=== PATIENT | male | born 1940 | race Caucasian/White ===

== ENCOUNTER 2019-01-26 17:24 | Inpatient (IN) | payer MEDICARE ==
[2019-01-26 18:13] LABS: ABS Basophils 0 10^3/ul (0-0.2); ABS Eosinophils 0.3 10^3/ul (0-0.6); ABS Lymphocytes 1.6 10^3/ul (1.0-4.8); ABS Monocytes 0.8 10^3/ul (0-0.8); ABS Neutrophils 4.7 10^3/ul (1.5-7.7); ABS Nucleated RBC 0 10^3/ul; Eosinophil % 3.5 %; Hematocrit 34 % (36-46); Hemoglobin 11.4 g/dL (14.0-18.0); Lymphocyte % 21.7 %; Mean Corpuscular HGB Conc 34 g/dL (31-36); Mean Corpuscular Hemoglobin 33 pg (27-31); Mean Corpuscular Volume 96 fL (80-94); Mean Platelet Volume 9.8 fL (7.4-10.4); Nucleated Red Blood Cells % 0.1; Platelet Count 121 10^3/uL (150-450); Red Cell Distribution Width 14 % (10.5-15); White Blood Count 7.4 10^3/uL (3.5-10.8)
[2019-01-26 18:21] LABS: INR 0.98 (0.77-1.02)
[2019-01-26 18:29] LABS: Albumin 3.8 g/dL (3.2-5.2); Albumin/Globulin Ratio 1.5 (1-3); C Reactive Protein 23.66 mg/L (<8.01); Calcium 9.1 mg/dL (8.6-10.3); EGFR African American 45.4 (>60); EGFR Non-African American 37.5 (>60); Globulin 2.6 g/dL (2-4); Magnesium 2.1 mg/dL (1.9-2.7); Total Bilirubin 0.5 mg/dL (0.2-1.0); Total Protein 6.4 g/dL (6.4-8.9)
[2019-01-26 18:30] LABS: Potassium 5.7 mmol/L (3.5-5.0)
[2019-01-26 19:19] LABS: TSH (Thyroid Stimulating Horm) 2.8 mcIU/mL (0.34-5.60)
[2019-01-26] MEDS ORDERED: Hydrochlorothiazide TAB* 25 MG PO ONE (19:32)
[2019-01-26 19:39] LABS: Urine Appearance Clear; Urine Bacteria Absent (Absent); Urine Bilirubin Negative (Negative); Urine Blood Negative (Negative); Urine Color Yellow; Urine Glucose 1+(50 mg/dL) (Negative); Urine Ketones Trace (Negative); Urine Nitrite Negative (Negative); Urine Protein 1+(30 mg/dL) (Negative); Urine Red Blood Cell Absent (Absent); Urine Specific Gravity 1.011 (1.010-1.030); Urine Urobilinogen Negative (Negative); Urine White Blood Cell Absent (Absent)
--- NOTE | 2019-01-26 20:39 | ED ---
Complex/Multi-Sys Presentation - HPI Summary HPI Summary: Per family patient complains of one episode of exertional shortness of breath, increased sleeping and fatigue, slower cognition over the past few days. Patient complains of chronic intermittent sensation of head pressure 1 year, with negative MRI in April 2018. also states patient's blood pressure was elevated up to 184/55 today, states baseline BP usually in the 130s. Also complains of worsening chronic shuffling gait. Denies fever, cough, sore throat , CP, N/V/D, abdominal pain, change in urine, change in BM. Medical history is DM 2, triple bypass with stents, most recently 6 years ago, chronic diarrhea. Cobol Programmer is Dr. Hearn at [facility]. - History Of Current Complaint Chief Complaint: EDAltMentalStatus Time Seen by Provider: 01/26/19 17:31 Hx Obtained From: Patient, Family/Corporate Director Onset/Duration: Gradual Onset Timing: Intermittent, Lasting: Severity Currently: Moderate Severity Initially: Moderate Associated Signs And Symptoms: Positive: SOB, Diarrhea - Allergies/Home Medications Allergies/Adverse Reactions: Allergies Allergy/AdvReac Type Severity Reaction Status Date / Time Sulfa (Sulfonamide Allergy Rash Verified 01/26/19 21:21 Antibiotics) Home Medications: Home Medications Atorvastatin* [Lipitor*] 40 mg PO 1700 01/26/19 [History Confirmed 01/26/19] PMH/Surg Hx/FS Hx/Imm Hx Endocrine/Hematology History: Reports: Hx Diabetes - TYPE II-ORAL MEDS AND INSULIN Cardiovascular History: Reports: Hx Coronary Artery Disease - 2 STENTS AND TRIPLE BYPASS, Hx Hypertension - ON MEDICATION FOR, Other Cardiovascular Problems/Disorders - OPEN HEART Denies: Hx Pacemaker/ICD Respiratory History: Reports: Hx Sleep Apnea - NO MACHINE- SLEEPS ON WEDGE PILLOW Denies: Hx Asthma Musculoskeletal History: Reports: Hx Arthritis, Hx Rheumatoid Arthritis Sensory History: Reports: Hx Cataracts - BILATERAL, Hx Contacts or Glasses - GLASSES-READING Denies: Hx Hearing Aid Opthamlomology History: Reports: Hx Cataracts - BILATERAL, Hx Contacts or Glasses - GLASSES-READING Neurological History: Reports: Other Neuro Impairments/Disorders - VERTIGO WHEN LAYING ON LEFT SIDE Psychiatric History: Denies: Hx Panic Disorder - Surgical History Surgery Procedure, Year, and Place: OPEN HEART-1993. 2008 CARDIAC CATH CARDIAC STENTS ( PT HAS CARDS,BOTH TAXUS,700G/cm,OK PER DR POLLOCK AT 1.5 ONLY). HERNIA REPAIR. 11/26/13 AND 12/06/13 2 CERVICAL SURGERIES WITH FUSION-LUBBOCK. CATARACT REPAIR. PINOIDAL CYST REMOVED FROM SACRUM 2015 Hx Anesthesia Reactions: No - Immunization History Immunizations Up to Date: Yes Infectious Disease History: No Infectious Disease History: Denies: Traveled Outside the [place] in Last 30 Days - Social History Alcohol Use: Rare Substance Use Type: Reports: None Smoking Status (MU): Former Smoker Type: Cigars Amount Used/How Often: S-CIGAR ONCE IN A WHILE Review of Systems Positive: Fatigue Eyes: Negative ENT: Negative Cardiovascular: Negative Positive: Shortness Of Breath Gastrointestinal: Negative Genitourinary: Negative Musculoskeletal: Negative Neurological: Negative Psychological: Normal All Other Systems Reviewed And Are Negative: Yes Physical Exam - Summary Physical Exam Summary: Neuro exam normal. Abdomen soft nontender. Bradycardia. Lung sounds clear to auscultation bilaterally. Triage Information Reviewed: Yes Vital Signs On Initial Exam: Initial Vitals Temp Pulse Resp BP Pulse Ox 98.5 F 60 17 156/56 94 01/26/19 17:27 01/26/19 17:27 01/26/19 17:27 01/26/19 17:27 01/26/19 17:27 Vital Signs Reviewed: Yes Appearance: Positive: Well-Appearing Skin: Positive: Warm Head/Face: Positive: Normal Head/Face Inspection Eyes: Positive: Normal Neck: Positive: Supple Respiratory/Lung Sounds: Positive: Clear to Auscultation Cardiovascular: Positive: Bradycardia Abdomen Description: Positive: Nontender Musculoskeletal: Positive: Normal Neurological: Positive: Normal Psychiatric: Positive: Normal AVPU Assessment: Alert - Zackery Coma Scale Best Eye Response: 4 - Spontaneous Best Motor Response: 6 - Obeys Commands Best Verbal Response: 5 - Oriented Coma Scale Total: 15 Diagnostics - Vital Signs Vital Signs Temp Pulse Resp BP Pulse Ox 01/26/19 19:31 39 19 155/76 94 01/26/19 19:01 40 23 174/78 96 01/26/19 19:00 40 21 95 01/26/19 18:43 48 213/63 01/26/19 18:42 28 213/63 01/26/19 18:40 44 25 171/68 94 01/26/19 18:38 41 17 167/88 94 01/26/19 18:30 41 26 175/67 92 01/26/19 18:25 41 21 179/68 94 01/26/19 18:00 25 01/26/19 17:31 41 22 156/56 96 01/26/19 17:30 42 26 95 01/26/19 17:27 98.5 F 60 17 156/56 94 - Laboratory Lab Results: Lab Results 01/26/19 01/26/19 01/26/19 Range/Units 17:59 18:06 18:06 WBC 7.4 (3.5-10.8) 10^3/uL RBC 3.50 L (4.18-5.48) 10^6 /uL Hgb 11.4 L (14.0-18.0) g/dL Hct 34 L (36-46) % MCV 96 H (80-94) fL MCH 33 H (27-31) pg MCHC 34 (31-36) g/dL RDW 14 (10.5-15) % Plt Count 121 L (150-450) 10^3/uL MPV 9.8 (7.4-10.4) fL Neut % (Auto) 64.1 % Lymph % (Auto) 21.7 % [place] % (Auto) 10.3 % Eos % (Auto) 3.5 % Baso % (Auto) 0.4 % Absolute Neuts (auto) 4.7 (1.5-7.7) 10^3/ul Absolute Lymphs (auto) 1.6 (1.0-4.8) 10^3/ul Absolute Monos (auto) 0.8 (0-0.8) 10^3/ul Absolute Eos (auto) 0.3 (0-0.6) 10^3/ul Absolute Basos (auto) 0 (0-0.2) 10^3/ul Absolute Nucleated RBC 0 10^3/ul Nucleated RBC % 0.1 INR (Anticoag Therapy) (0.77-1.02) Sodium 138 (135-145) mmol/L Potassium 5.7 H (3.5-5.0) mmol/L Chloride 106 (101-111) mmol/L Carbon Dioxide 23 (22-32) mmol/L Anion Gap 9 (2-11) mmol/L BUN 51 H (6-24) mg/dL Creatinine 1.76 H (0.67-1.17) mg/dL Est GFR ( Amer) 45.4 (>60) Est GFR (Non-Af Amer) 37.5 (>60) BUN/Creatinine Ratio 29.0 H (8-20) Glucose 169 H (70-100) mg/dL Lactic Acid (0.5-2.0) mmol/L Calcium 9.1 (8.6-10.3) mg/dL Magnesium 2.1 (1.9-2.7) mg/dL Total Bilirubin 0.50 (0.2-1.0) mg/dL AST 20 (13-39) U/L ALT 33 (7-52) U/L Alkaline Phosphatase 97 (34-104) U/L Troponin I (<0.04) ng/mL C-Reactive Protein 23.66 H (<8.01) mg/L B-Natriuretic Peptide 638 H (<=100) pg/mL Total Protein 6.4 (6.4-8.9) g/dL Albumin 3.8 (3.2-5.2) g/dL Globulin 2.6 (2-4) g/dL Albumin/Globulin Ratio 1.5 (1-3) TSH 2.80 (0.34-5.60) mcIU/mL Urine Color Urine Appearance Urine pH (5-9) Ur Specific [place] (1.010-1.030) Urine Protein (Negative) Urine Ketones (Negative) Urine Blood (Negative) Urine Nitrate (Negative) Urine Bilirubin (Negative) Urine Urobilinogen (Negative) Ur Leukocyte Esterase (Negative) Urine WBC (Auto) (Absent) Urine RBC (Auto) (Absent) Urine Bacteria (Absent) Urine Glucose (Negative) Urine Ascorbic Acid (Negative) 01/26/19 01/26/19 01/26/19 Range/Units 18:06 18:06 18:06 WBC (3.5-10.8) 10^3/uL RBC (4.18-5.48) 10^6 /uL Hgb (14.0-18.0) g/dL Hct (36-46) % MCV (80-94) fL MCH (27-31) pg MCHC (31-36) g/dL RDW (10.5-15) % Plt Count (150-450) 10^3/uL MPV (7.4-10.4) fL Neut % (Auto) % Lymph % (Auto) % [place] % (Auto) % Eos % (Auto) % Baso % (Auto) % Absolute Neuts (auto) (1.5-7.7) 10^3/ul Absolute Lymphs (auto) (1.0-4.8) 10^3/ul Absolute Monos (auto) (0-0.8) 10^3/ul Absolute Eos (auto) (0-0.6) 10^3/ul Absolute Basos (auto) (0-0.2) 10^3/ul Absolute Nucleated RBC 10^3/ul Nucleated RBC % INR (Anticoag Therapy) 0.98 (0.77-1.02) Sodium (135-145) mmol/L Potassium (3.5-5.0) mmol/L Chloride (101-111) mmol/L Carbon Dioxide (22-32) mmol/L Anion Gap (2-11) mmol/L BUN (6-24) mg/dL Creatinine (0.67-1.17) mg/dL Est GFR ( Amer) (>60) Est GFR (Non-Af Amer) (>60) BUN/Creatinine Ratio (8-20) Glucose (70-100) mg/dL Lactic Acid 3.1 H* (0.5-2.0) mmol/L Calcium (8.6-10.3) mg/dL Magnesium (1.9-2.7) mg/dL Total Bilirubin (0.2-1.0) mg/dL AST (13-39) U/L ALT (7-52) U/L Alkaline Phosphatase (34-104) U/L Troponin I 0.01 (<0.04) ng/mL C-Reactive Protein (<8.01) mg/L B-Natriuretic Peptide (<=100) pg/mL Total Protein (6.4-8.9) g/dL Albumin (3.2-5.2) g/dL Globulin (2-4) g/dL Albumin/Globulin Ratio (1-3) TSH (0.34-5.60) mcIU/mL Urine Color Urine Appearance Urine pH (5-9) Ur Specific [place] (1.010-1.030) Urine Protein (Negative) Urine Ketones (Negative) Urine Blood (Negative) Urine Nitrate (Negative) Urine Bilirubin (Negative) Urine Urobilinogen (Negative) Ur Leukocyte Esterase (Negative) Urine WBC (Auto) (Absent) Urine RBC (Auto) (Absent) Urine Bacteria (Absent) Urine Glucose (Negative) Urine Ascorbic Acid (Negative) 01/26/19 Range/Units 19:25 WBC (3.5-10.8) 10^3/uL RBC (4.18-5.48) 10^6 /uL Hgb (14.0-18.0) g/dL Hct (36-46) % MCV (80-94) fL MCH (27-31) pg MCHC (31-36) g/dL RDW (10.5-15) % Plt Count (150-450) 10^3/uL MPV (7.4-10.4) fL Neut % (Auto) % Lymph % (Auto) % [place] % (Auto) % Eos % (Auto) % Baso % (Auto) % Absolute Neuts (auto) (1.5-7.7) 10^3/ul Absolute Lymphs (auto) (1.0-4.8) 10^3/ul Absolute Monos (auto) (0-0.8) 10^3/ul Absolute Eos (auto) (0-0.6) 10^3/ul Absolute Basos (auto) (0-0.2) 10^3/ul Absolute Nucleated RBC 10^3/ul Nucleated RBC % INR (Anticoag Therapy) (0.77-1.02) Sodium (135-145) mmol/L Potassium (3.5-5.0) mmol/L Chloride (101-111) mmol/L Carbon Dioxide (22-32) mmol/L Anion Gap (2-11) mmol/L BUN (6-24) mg/dL Creatinine (0.67-1.17) mg/dL Est GFR ( Amer) (>60) Est GFR (Non-Af Amer) (>60) BUN/Creatinine Ratio (8-20) Glucose (70-100) mg/dL Lactic Acid (0.5-2.0) mmol/L Calcium (8.6-10.3) mg/dL Magnesium (1.9-2.7) mg/dL Total Bilirubin (0.2-1.0) mg/dL AST (13-39) U/L ALT (7-52) U/L Alkaline Phosphatase (34-104) U/L Troponin I (<0.04) ng/mL C-Reactive Protein (<8.01) mg/L B-Natriuretic Peptide (<=100) pg/mL Total Protein (6.4-8.9) g/dL Albumin (3.2-5.2) g/dL Globulin (2-4) g/dL Albumin/Globulin Ratio (1-3) TSH (0.34-5.60) mcIU/mL Urine Color Yellow Urine Appearance Clear Urine pH 5.0 (5-9) Ur Specific [place] 1.011 (1.010-1.030) Urine Protein 1+(30 mg/dl) A (Negative) Urine Ketones Trace A (Negative) Urine Blood Negative (Negative) Urine Nitrate Negative (Negative) Urine Bilirubin Negative (Negative) Urine Urobilinogen Negative (Negative) Ur Leukocyte Esterase Negative (Negative) Urine WBC (Auto) Absent (Absent) Urine RBC (Auto) Absent (Absent) Urine Bacteria Absent (Absent) Urine Glucose 1+(50 mg/dl) A (Negative) Urine Ascorbic Acid * A (Negative) Result Diagrams: 01/26/19 18:06 01/26/19 18:06 Lab Statement: Any lab studies that have been ordered have been reviewed, and results considered in the medical decision making process. Complex Multi-Symp Course/Dx Course Of Treatment: Per family patient complains of one episode of exertional shortness of breath, increased sleeping and fatigue, slower cognition over the past few days. Patient complains of chronic intermittent sensation of head pressure 1 year, with negative MRI in April 2018. also states patient's blood pressure was elevated up to 184/55 today, states baseline BP usually in the 130s. Also complains of worsening chronic shuffling gait. Denies fever, cough, sore throat, CP, N/V/D, abdominal pain, change in urine, change in BM. Medical history is DM 2, triple bypass with stents, most recently 6 years ago, chronic diarrhea. Cobol Programmer is Dr. Hearn at [facility]. Physical exam:Neuro exam normal. Abdomen soft nontender. Bradycardia. Lung sounds clear to auscultation bilaterally. Patient bradycardic with a heart rate in the 40s. Elevated blood pressure ranging from 160-200 SBP. Hgb 11.4. Potassium 5.7, elevated from baseline. Creatinine 1.76 elevated from baseline. Lactic 3.1. CRP 23. BNP 638, with no prior BNP measurements on file. EKG 21 AV block. Chest x-ray negative for acute process. Discussed patient with on-call for patient's emergency detail driver at [facility] in [place] stated patient did not have history of AV block, and recommended hydrochlorothiazide of elevated blood pressure, discontinuing metoprolol and observation to see if conduction disturbance resolved. Discussed patient with on-call [facility] emergency detail driver Dr. Wood who recommended admission to hospitalist, hydrochlorothiazide 25 mg by mouth, discontinuing metoprolol and observation. Dr. Lopez will consult tomorrow morning. Patient and family understand the plan. Admitted to hospitalist Dr. Campos for new onset AV block - Diagnoses Provider Diagnoses: Fatigue, Exertional shortness of breath, AV block Discharge - Sign-Out/Discharge Documenting (check all that apply): Patient Departure Patient Received Moderate/Deep Sedation with Procedure: No - Discharge Plan Condition: Stable Disposition: ADMITTED TO [facility] - Billing Disposition and Condition Condition: STABLE Disposition: Admitted to [facility]
[2019-01-26] MEDS ORDERED: Furosemide IV* 10 MG/ML VIAL (40 MG) IV ONE (21:14)
[2019-01-26] MEDS ORDERED: Acetaminophen TAB* 325 MG PO PRN (21:15)
[2019-01-26] MEDS ORDERED: Morphine INJ* 2 MG/ML 1 ML SYRINGE (TWO MG - NEW SYRINGE VERSION) IV PRN (21:15)
[2019-01-26] MEDS ORDERED: Dextrose 50% Syringe 50 ML* 25 GM/50 ML SYRINGE IV PUSH PRN (21:28)
[2019-01-26] MEDS: Heparin VIAL(*) 5000 UNITS/ML VIAL (FIVE THOUSAND) SUBCUT SCH (22:34)
--- NOTE | 2019-01-26 23:52 | HP ---
CC: Dr. Gillespie; [facility], Dr. Daniel Hearn; Dr. Wood HISTORY AND PHYSICAL: DATE OF ADMISSION: 01/26/19 PRIMARY CARE PROVIDER: Dr. Gillespie. CHIEF COMPLAINT: Generalized weakness and shortness of breath. HISTORY OF PRESENT ILLNESS: Jamarcus Kilpatrick is a 78-year-old male with a history of coronary artery disease and diagnosed in 2009 Mobitz type I block, who presented to the hospital complaining of 2 weeks of feeling weak, not sleeping well, short of breath. The patient is a rather convoluted historian. He stated that that he felt better when he put his fan on when he was sleeping at night, but his stated that he put the fan on because he could not breathe at night. He stated that the problem with shortness of breath is not changed with position. He really feels that he sleeps best in a recliner. He presented to the ED. He was noted to have heart rate in the 30s with 2:[address] Wood was notified. The patient is going to be admitted to the intensive care unit for likely pacemaker in the future. PAST MEDICAL HISTORY: 1. History of hypertension. 2. Diabetes type 2. 3. Coronary artery disease, status post coronary artery bypass grafting in 1993. The patient also has history of stents. His last cardiac catheterization in 2012 showed patent graft and patent stents and moderate to severe LAD stenosis that is unchanged. Apparently, the stenosis is not amenable for intervention. 4. History of C-spine decompression, 2 surgeries for that. 5. History of hyperlipidemia. 6. History of chronic back pain. 7. History of lumbar spine surgery in 2015. MEDICATIONS AT HOME: 1. Halima 24 hours, take 1 by mouth daily p.r.n. 2. Altace 2.5 mg twice a day. 3. Amlodipine 10 mg daily. 4. Aspirin 81 mg daily. 5. Atorvastatin 40 mg daily. 6. Glucosamine 1500 mg daily. 7. Glyburide 6 mg daily. 8. Hydrochlorothiazide 12.5 mg daily. 9. Metformin 1000 mg in the morning, 1000 at noon, and 500 at night. 10. Metoprolol succinate 50 mg daily. 11. Naproxen 220 mg twice a day. 12. Insulin lispro as per sliding scale. Please note that this medication list was obtained from the patient's medication list that he received from his primary care provider on 01/03/19 and as per patient is current. The patient could not confirm those medications because he does not remember what he takes. ALLERGIES: Include SULFA. FAMILY HISTORY: Positive for mother who of an AL at the age of 60. Father of complications of stomach surgery and apparently GI bleeding. The patient's brother and sister both have diabetes. SOCIAL HISTORY: The patient denies any tobacco, alcohol, or drug use. He lives with his , who is his surrogate, her name is Jayda Kilpatrick. There is no history of tobacco, alcohol, or drug use. He is fully independent with his activities of daily living. REVIEW OF SYSTEMS: Please see history of present illness. All the remaining 12 systems were reviewed with the patient and were otherwise negative. PHYSICAL EXAMINATION GENERAL: The patient is a very pleasant 78-year-old male who is in no acute distress. The patient is alert and oriented x3, rather poor historian though. VITAL SIGNS: Blood pressure of 175/66, heart rate of 39 and regular, respiratory rate 26, oxygen saturation 95% on room air, temperature of 98.5. HEENT: Head: Atraumatic, normocephalic. Eyes: Pupils are equal, reactive to light and accommodation. Oropharynx clear. Mucosa moist. NECK: Supple. No JVD, no bruits bilaterally. RESPIRATORY: Faint crackles at bilateral bases, otherwise clear. CARDIOVASCULAR: Bradycardia, regular rhythm with 2/6 systolic ejection murmur noted on auscultation of the apex. ABDOMEN: Soft, nontender. Bowel sounds are present in all 4 quadrants. EXTREMITIES: There is +1 pitting ankle edema bilaterally. Pulses are +2 bilaterally. There is no clubbing or cyanosis. NEUROLOGIC EVALUATION: Speech is clear. Cranial nerves II through XII grossly intact. Motor strength is 5/5 bilaterally. PSYCHIATRIC EVALUATION: Rather poor historian, oriented x3 with no evidence of anxiety or depression. SKIN: On evaluation of the skin, brown discoloration of bilateral distal lower extremities likely due to venous stasis. No other abnormalities noted. DIAGNOSTIC STUDIES/LAB DATA: White blood cell count of 7.4, hemoglobin of 11.4 , hematocrit of 34, MCV of 96, and platelets of 121. Sodium of 138, potassium 4.7, chloride 106, carbon dioxide 23, BUN 51, creatinine 1.76. Liver function tests are unremarkable. Lactic acid is 3.1 at arrival, 2.2 repeated. C-reactive protein of 23. Troponin of 0.01 and 0.02. Brain natriuretic peptide was 638. TSH was 2.8. The patient's portable chest x-ray seen by myself prior to the official radiology report shows vascular congestion. The patient's EKG showed 2:1 AV block with a heart rate of 41 beats per minute and ST depressions in V3 and V4. ASSESSMENT AND PLAN: 1. The patient has 2:1 heart block. He has history of Mobitz type I block. It is possible that the patient has had natural progression of his heart block. The patient had been on his same dose of metoprolol for at least several months now. I will hold the patient's metoprolol. He is going to be admitted to the intensive care unit. So far, he had been hemodynamically stable. Dr. Wood is aware of the patient's consultation as he was notified by the ED physician. At this point, we will treat it supportively and the patient likely will need to have pacemaker placement on Monday. 2. The patient has uncontrolled hypertension. Due to his bradycardia, metoprolol needs to be held. The patient is going to be continued on Norvasc and hydrochlorothiazide. The patient also appears in acute systolic congestive heart failure and Lasix is going to be ordered x1 dose today. The patient is going to also be placed on daily weights and intake and output summaries. 3. For the patient's acute kidney injury, the patient's creatinine at baseline is 1.2 due to chronic kidney disease stage 3, although the patient is not aware of that diagnosis. I suspect his congestive heart failure is due to bradycardia. I suspect he is in renal failure due to bradycardia and systolic congestive heart failure. His creatinine should improve after Lasix administration. I suspect also his hyperkalemia will improve after Lasix administration. 4. For the patient's diabetes, the patient's oral hypoglycemics are going to be held. The patient is going to be placed on insulin sliding scale. His Humulin is also going to be held. 5. For DVT prophylaxis, the patient is going to be placed on heparin subcutaneously. 6. For the patient's coronary artery disease, the patient is not symptomatic of chest pain. His troponins have been so far negative. The patient is going to be continue on his atorvastatin and aspirin. 7. The patient's code status is full. His surrogate is his . TIME SPENT: Approximately 65 minutes was spent on the admission of this patient , more than half of that time was spent [id number] with the patient during the interview and physical exam. [id number]/[facility] #: [id number] GILMAR
[2019-01-27] MEDS ORDERED: Patiromer POWDER* 8.4 GM PAK PO ONE (03:00)
[2019-01-27] MEDS: Heparin VIAL(*) 5000 UNITS/ML VIAL (FIVE THOUSAND) SUBCUT SCH ×3 (06:23→22:30)
[2019-01-27 07:38] LABS: ABS Basophils 0 10^3/ul (0-0.2); ABS Eosinophils 0.2 10^3/ul (0-0.6); ABS Lymphocytes 0.9 10^3/ul (1.0-4.8); ABS Monocytes 0.6 10^3/ul (0-0.8); ABS Neutrophils 4.1 10^3/ul (1.5-7.7); ABS Nucleated RBC 0 10^3/ul; Eosinophil % 3.9 %; Hematocrit 32 % (36-46); Hemoglobin 11.1 g/dL (14.0-18.0); Mean Corpuscular HGB Conc 34 g/dL (31-36); Mean Corpuscular Hemoglobin 32 pg (27-31); Mean Corpuscular Volume 94 fL (80-94); Mean Platelet Volume 9.8 fL (7.4-10.4); Nucleated Red Blood Cells % 0; Platelet Count 119 10^3/uL (150-450); Red Blood Count 3.44 10^6 /uL (4.18-5.48); Red Cell Distribution Width 14 % (10.5-15); White Blood Count 5.9 10^3/uL (3.5-10.8)
[2019-01-27] MEDS: Insulin LISPRO* 1 UNITS UNIT SUBCUT SCH ×4 (08:00→22:32)
[2019-01-27 08:01] LABS: BUN/Creatinine Ratio 29.7 (8-20); EGFR African American 52.6 (>60); EGFR Non-African American 43.5 (>60); Potassium 4.5 mmol/L (3.5-5.0)
[2019-01-27] MEDS: Hydrochlorothiazide TAB* 25 MG PO SCH (09:18)
[2019-01-27] MEDS: Aspirin EC TAB* 81 MG TAB.EC PO SCH (09:18)
[2019-01-27] MEDS: amLODIPine TAB* 5 MG PO SCH (09:18)
--- NOTE | 2019-01-27 12:27 | PN ---
Subjective Date of Service: 01/27/19 Interval History: Less SOB today. No chest pain. No new c/o. Objective Active Medications: Acetaminophen (Tylenol Tab*) 650 mg PO Q4H PRN PRN Reason: FEVER/PAIN Amlodipine Besylate (Norvasc Tab*) 10 mg PO DAILY [facility] Last Admin: 01/27/19 09:18 Dose: 10 mg Aspirin (Aspirin Ec Tab*) 81 mg PO DAILY [facility] Last Admin: 01/27/19 09:18 Dose: 81 mg Atorvastatin Calcium (Lipitor*) 40 mg PO 1700 [facility] Dextrose (D50w Syringe 50 Ml*) 12.5 gm IV PUSH .FOR FS < 60 - SS PRN PRN Reason: FS < 60 Heparin Sodium (Porcine) (Heparin Vial(*)) 5,000 units SUBCUT Q8HR [facility] Last Admin: 01/27/19 06:23 Dose: 5,000 units Hydrochlorothiazide (Hydrodiuril Tab*) 12.5 mg PO DAILY [facility] Last Admin: 01/27/19 09:18 Dose: 12.5 mg Insulin Human Lispro (Humalog*) 0 units SUBCUT ACHS [facility]; Protocol Last Admin: 01/27/19 12:16 Dose: 8 units Insulin Human NPH (Insulin Nph(*)) 15 units SUBCUT BEDTIME [facility] Morphine Sulfate (Morphine Inj (Syringe))*) 1 mg IV Q4H PRN PRN Reason: PAIN - MILD Vital Signs - 8 hr 01/27/19 01/27/19 01/27/19 04:32 05:00 05:01 Temperature Pulse Rate 41 39 38 Respiratory 19 23 20 Rate Blood Pressure 149/54 156/61 (mmHg) O2 Sat by Pulse 93 94 94 Oximetry 01/27/19 01/27/19 01/27/19 05:31 06:00 06:31 Temperature Pulse Rate 40 45 43 Respiratory 22 16 26 Rate Blood Pressure 150/75 161/95 (mmHg) O2 Sat by Pulse 95 95 92 Oximetry 01/27/19 01/27/19 01/27/19 07:00 07:01 07:31 Temperature Pulse Rate 44 43 43 Respiratory 26 24 22 Rate Blood Pressure 159/90 141/117 (mmHg) O2 Sat by Pulse 94 92 93 Oximetry 01/27/19 01/27/19 01/27/19 08:00 08:02 08:31 Temperature Pulse Rate 45 45 Respiratory 20 25 21 Rate Blood Pressure 170/61 162/59 (mmHg) O2 Sat by Pulse 94 94 Oximetry 01/27/19 01/27/19 01/27/19 09:00 09:02 10:00 Temperature Pulse Rate 47 48 45 Respiratory 24 19 22 Rate Blood Pressure 158/49 (mmHg) O2 Sat by Pulse 93 92 98 Oximetry 01/27/19 01/27/19 01/27/19 11:00 11:22 12:00 Temperature Pulse Rate 44 44 45 Respiratory 22 22 22 Rate Blood Pressure 157/45 (mmHg) O2 Sat by Pulse 95 95 96 Oximetry 01/27/19 12:04 Temperature 98.4 F Pulse Rate 47 Respiratory 16 Rate Blood Pressure 157/45 (mmHg) O2 Sat by Pulse 96 Oximetry Oxygen Devices in Use Now: None Appearance: Alert, in a chair. In good spirits. Looks comfortable. Eyes: No Scleral Icterus Respiratory: Symmetrical Chest Expansion and Respiratory Effort, Clear to Auscultation, Clear to Percussion Cardiovascular: RRR, No Edema, - - 2-3/6 systolic murmur across precordium Extremities: No Edema, No Clubbing, Cyanosis, - Skin: No Rash or Ulcers, No Nodules or Sclerosis, - Neurological: Alert and Oriented x 3, NL Sensation Result Diagrams: 01/27/19 07:22 01/27/19 07:22 Additional Lab and Data: Lab Results 01/26/19 01/26/19 01/26/19 Range/Units 17:59 18:06 18:06 WBC 7.4 (3.5-10.8) 10^3/uL RBC 3.50 L (4.18-5.48) 10^6 /uL Hgb 11.4 L (14.0-18.0) g/dL Hct 34 L (36-46) % MCV 96 H (80-94) fL MCH 33 H (27-31) pg MCHC 34 (31-36) g/dL RDW 14 (10.5-15) % Plt Count 121 L (150-450) 10^3/uL MPV 9.8 (7.4-10.4) fL Neut % (Auto) 64.1 % Lymph % (Auto) 21.7 % Boyd % (Auto) 10.3 % Eos % (Auto) 3.5 % Baso % (Auto) 0.4 % Absolute Neuts (auto) 4.7 (1.5-7.7) 10^3/ul Absolute Lymphs (auto) 1.6 (1.0-4.8) 10^3/ul Absolute Monos (auto) 0.8 (0-0.8) 10^3/ul Absolute Eos (auto) 0.3 (0-0.6) 10^3/ul Absolute Basos (auto) 0 (0-0.2) 10^3/ul Absolute Nucleated RBC 0 10^3/ul Nucleated RBC % 0.1 INR (Anticoag Therapy) (0.77-1.02) Sodium 138 (135-145) mmol/L Potassium 5.7 H (3.5-5.0) mmol/L Chloride 106 (101-111) mmol/L Carbon Dioxide 23 (22-32) mmol/L Anion Gap 9 (2-11) mmol/L BUN 51 H (6-24) mg/dL Creatinine 1.76 H (0.67-1.17) mg/dL Est GFR ( Amer) 45.4 (>60) Est GFR (Non-Af Amer) 37.5 (>60) BUN/Creatinine Ratio 29.0 H (8-20) Glucose 169 H (70-100) mg/dL Lactic Acid (0.5-2.0) mmol/L Calcium 9.1 (8.6-10.3) mg/dL Magnesium 2.1 (1.9-2.7) mg/dL Total Bilirubin 0.50 (0.2-1.0) mg/dL AST 20 (13-39) U/L ALT 33 (7-52) U/L Alkaline Phosphatase 97 (34-104) U/L Troponin I (<0.04) ng/mL C-Reactive Protein 23.66 H (<8.01) mg/L B-Natriuretic Peptide 638 H (<=100) pg/mL Total Protein 6.4 (6.4-8.9) g/dL Albumin 3.8 (3.2-5.2) g/dL Globulin 2.6 (2-4) g/dL Albumin/Globulin Ratio 1.5 (1-3) TSH 2.80 (0.34-5.60) mcIU/mL Urine Color Urine Appearance Urine pH (5-9) Ur Specific [place] (1.010-1.030) Urine Protein (Negative) Urine Ketones (Negative) Urine Blood (Negative) Urine Nitrate (Negative) Urine Bilirubin (Negative) Urine Urobilinogen (Negative) Ur Leukocyte Esterase (Negative) Urine WBC (Auto) (Absent) Urine RBC (Auto) (Absent) Urine Bacteria (Absent) Urine Glucose (Negative) Urine Ascorbic Acid (Negative) 01/26/19 01/26/19 01/26/19 Range/Units 18:06 18:06 18:06 WBC (3.5-10.8) 10^3/uL RBC (4.18-5.48) 10^6 /uL Hgb (14.0-18.0) g/dL Hct (36-46) % MCV (80-94) fL MCH (27-31) pg MCHC (31-36) g/dL RDW (10.5-15) % Plt Count (150-450) 10^3/uL MPV (7.4-10.4) fL Neut % (Auto) % Lymph % (Auto) % Boyd % (Auto) % Eos % (Auto) % Baso % (Auto) % Absolute Neuts (auto) (1.5-7.7) 10^3/ul Absolute Lymphs (auto) (1.0-4.8) 10^3/ul Absolute Monos (auto) (0-0.8) 10^3/ul Absolute Eos (auto) (0-0.6) 10^3/ul Absolute Basos (auto) (0-0.2) 10^3/ul Absolute Nucleated RBC 10^3/ul Nucleated RBC % INR (Anticoag Therapy) 0.98 (0.77-1.02) Sodium (135-145) mmol/L Potassium (3.5-5.0) mmol/L Chloride (101-111) mmol/L Carbon Dioxide (22-32) mmol/L Anion Gap (2-11) mmol/L BUN (6-24) mg/dL Creatinine (0.67-1.17) mg/dL Est GFR ( Amer) (>60) Est GFR (Non-Af Amer) (>60) BUN/Creatinine Ratio (8-20) Glucose (70-100) mg/dL Lactic Acid 3.1 H* (0.5-2.0) mmol/L Calcium (8.6-10.3) mg/dL Magnesium (1.9-2.7) mg/dL Total Bilirubin (0.2-1.0) mg/dL AST (13-39) U/L ALT (7-52) U/L Alkaline Phosphatase (34-104) U/L Troponin I 0.01 (<0.04) ng/mL C-Reactive Protein (<8.01) mg/L B-Natriuretic Peptide (<=100) pg/mL Total Protein (6.4-8.9) g/dL Albumin (3.2-5.2) g/dL Globulin (2-4) g/dL Albumin/Globulin Ratio (1-3) TSH (0.34-5.60) mcIU/mL Urine Color Urine Appearance Urine pH (5-9) Ur Specific [place] (1.010-1.030) Urine Protein (Negative) Urine Ketones (Negative) Urine Blood (Negative) Urine Nitrate (Negative) Urine Bilirubin (Negative) Urine Urobilinogen (Negative) Ur Leukocyte Esterase (Negative) Urine WBC (Auto) (Absent) Urine RBC (Auto) (Absent) Urine Bacteria (Absent) Urine Glucose (Negative) Urine Ascorbic Acid (Negative) 01/26/19 Range/Units 19:25 WBC (3.5-10.8) 10^3/uL RBC (4.18-5.48) 10^6 /uL Hgb (14.0-18.0) g/dL Hct (36-46) % MCV (80-94) fL MCH (27-31) pg MCHC (31-36) g/dL RDW (10.5-15) % Plt Count (150-450) 10^3/uL MPV (7.4-10.4) fL Neut % (Auto) % Lymph % (Auto) % Boyd % (Auto) % Eos % (Auto) % Baso % (Auto) % Absolute Neuts (auto) (1.5-7.7) 10^3/ul Absolute Lymphs (auto) (1.0-4.8) 10^3/ul Absolute Monos (auto) (0-0.8) 10^3/ul Absolute Eos (auto) (0-0.6) 10^3/ul Absolute Basos (auto) (0-0.2) 10^3/ul Absolute Nucleated RBC 10^3/ul Nucleated RBC % INR (Anticoag Therapy) (0.77-1.02) Sodium (135-145) mmol/L Potassium (3.5-5.0) mmol/L Chloride (101-111) mmol/L Carbon Dioxide (22-32) mmol/L Anion Gap (2-11) mmol/L BUN (6-24) mg/dL Creatinine (0.67-1.17) mg/dL Est GFR ( Amer) (>60) Est GFR (Non-Af Amer) (>60) BUN/Creatinine Ratio (8-20) Glucose (70-100) mg/dL Lactic Acid (0.5-2.0) mmol/L Calcium (8.6-10.3) mg/dL Magnesium (1.9-2.7) mg/dL Total Bilirubin (0.2-1.0) mg/dL AST (13-39) U/L ALT (7-52) U/L Alkaline Phosphatase (34-104) U/L Troponin I (<0.04) ng/mL C-Reactive Protein (<8.01) mg/L B-Natriuretic Peptide (<=100) pg/mL Total Protein (6.4-8.9) g/dL Albumin (3.2-5.2) g/dL Globulin (2-4) g/dL Albumin/Globulin Ratio (1-3) TSH (0.34-5.60) mcIU/mL Urine Color Yellow Urine Appearance Clear Urine pH 5.0 (5-9) Ur Specific [place] 1.011 (1.010-1.030) Urine Protein 1+(30 mg/dl) A (Negative) Urine Ketones Trace A (Negative) Urine Blood Negative (Negative) Urine Nitrate Negative (Negative) Urine Bilirubin Negative (Negative) Urine Urobilinogen Negative (Negative) Ur Leukocyte Esterase Negative (Negative) Urine WBC (Auto) Absent (Absent) Urine RBC (Auto) Absent (Absent) Urine Bacteria Absent (Absent) Urine Glucose 1+(50 mg/dl) A (Negative) Urine Ascorbic Acid * A (Negative) Assess/Plan/Problems-Billing Assessment: - Patient Problems (1) Second degree heart block Current Visit: Yes Status: Acute Code(s): I44.1 - ATRIOVENTRICULAR BLOCK, SECOND DEGREE SNOMED Code(s): 356564238 Comment: Two to one conduction. GA is not prolonged, could favor type II but not certain. Tele. Discussed with Dr. Wood. Last dose metoprolol succinate in AM 4/6. (2) CAD (coronary artery disease) Current Visit: Yes Status: Acute Code(s): I25.10 - ATHSCL HEART DISEASE OF [place] CORONARY ARTERY W/O ANG PCTRS SNOMED Code(s): 59743892 Comment: CABG many years ago. Stents more recently. Had "complete checkup" with his r programmer in [place] 10/2018. (3) Diabetes Current Visit: Yes Status: Acute Code(s): E11.9 - TYPE 2 DIABETES MELLITUS WITHOUT COMPLICATIONS SNOMED Code(s): 19440136 Comment: Metformin and glyburide on hold. Take N insulin 20 U bedtime, will give 1 U hs start 01/27. SSI.
--- NOTE | 2019-01-27 14:55 | CONS ---
CC: Hospitalist Service; Dr. Wood; Dr. Hernandez; Dr. Gillespie * CARDIOLOGY CONSULT: DATE OF CONSULT: 01/27/19 HISTORY OF PRESENT ILLNESS: I was asked by hospitalist service to see this 78- year- old male patient, who does have extensive cardiac history. He followed up with Dr. Hearn at [facility] in [place], his degreaser. The patient presented with generalized weakness, fatigability, lack of energy, shortness of breath, lightheadedness, dizziness for a few weeks actually. In the emergency room, he was found to be in bradycardia, heart rate upper 30s, lower 40s and 2:1 AV block. He was hospitalized for consideration for a permanent pacemaker. He is on metoprolol 50 mg once a day. The patient gives no history of syncope. He does have extensive cardiac history that includes coronary artery disease, bypass grafting in 1993, also history of multiple stents in the past. Cath, last one 2012 showed patent graft and patent stents, [id number] LAD stenosis that was unchanged, but apparently not amenable for intervention. He does have history of systemic arterial hypertension, his blood pressure was elevated; hyperlipidemia; chronic back pain syndrome and lumbar spine surgery, 2016; history of diabetes mellitus type 2. He gives no chest pain, no nausea, no vomiting, no hematochezia, no skin rash, no abdominal pain, no syncope, no swelling in the lower extremities, no palpitations, no tachycardia is appreciated. His review of all other systems essentially is negative. PAST MEDICAL HISTORY: Extensive: Coronary artery disease, CABG, multiple stents; diabetes mellitus type 2; systemic arterial hypertension; hyperlipidemia ; chronic back pain syndrome and lumbar spine surgery. MEDICATIONS: Outpatient medications: 1. Altace 2.5 mg twice a day. 2. Amlodipine 10 mg daily. 3. Aspirin 81 mg daily. 4. Lipitor 40 mg daily. 5. Glyburide 6 mg daily. 6. Hydrochlorothiazide 12.5 mg daily. 7. Halima 24 Hour 1 if needed. 8. Metformin 1000 mg in the morning, 1000 at noon, and 500 at night. 9. Metoprolol 50 mg daily. 10. Naproxen 220 mg twice a day. 11. Insulin sliding scale. Medications as an inpatient include the followin. Tylenol 650 mg p.o. q.4 hours p.r.n. 2. Norvasc 10 mg daily. 3. Aspirin 81 mg daily. 4. Lipitor 40 mg daily. 5. Heparin 5000 units subcu q.8 hours. 6. Hydrochlorothiazide 12.5 mg daily. 7. Insulin. ALLERGIES: He is allergic to SULFA. FAMILY HISTORY: , mother, [place] at age 60. Father, no history of coronary artery disease. SOCIAL HISTORY: No history of smoking, drinking, or illicit drug use. He lives with his . REVIEW OF SYSTEMS: Review of all other systems essentially is negative. PHYSICAL EXAM: On exam, he is awake, alert, and oriented. He feels tired, fatigued. He is not in acute distress. Vitals: Blood pressure 157/45; pulse 47, sinus rhythm; respiratory rate 16; temperature 98.4. Head and Neck Exam: Normocephalic, atraumatic head. Ears, Nose, and Throat: Essentially benign. Neck: Supple. JVP is not elevated. No carotid bruits. No masses in the neck are appreciated. Chest: Clear to auscultation. No rales, no wheeze. No added sounds appreciated. Heart: Normal S1, S2. No added sounds. No gallops , no rubs, but they are bradycardic. Abdomen: Obese, soft. Positive bowel sounds. Extremities: No edema, no cyanosis, no clubbing. Skin exam is normal. Psych: Normal affect and mood. BUTTON MAKER: No focal deficits appreciated. DIAGNOSTIC STUDIES/LAB DATA: White blood cell 5.9, hemoglobin 11.1, hematocrit 32, platelets 119. Chemistry: Sodium 138, potassium 4.5, chloride 105, total CO2 25, BUN 46, creatinine 1.55. Troponin 0.02. His chest x-ray was reported to have pulmonary vascular congestion, small pleural effusion. His EKG showed the patient to be in sinus rhythm, sinus bradycardia, 2:1 AV block, borderline left atrial abnormality. IMPRESSION: The patient is a 78-year-old male patient with: 1. Symptomatic resting sinus bradycardia and 2:1 atrioventricular block. 2. The patient had history from before of [place] I second-degree atrioventricular block. 3. Extensive cardiac history, coronary artery disease, coronary artery bypass graft, cardiac cath in 2012, followed up with Cardiology at [facility] in [place]. 4. Diabetes mellitus, insulin-dependent. 5. Systemic arterial hypertension. 6. Hyperlipidemia. 7. Obesity. 8. Abnormal EKG as described. PLAN: Permanent pacemaker is indicated. It is very important to evaluate an echo to evaluate his left ventricular systolic function given his history of coronary artery disease. If his left ventricular systolic function is 35 or less, then he is a candidate for an ICD. We will evaluate this. Meanwhile, I agree with holding his metoprolol. Keep electrolytes, especially potassium more than 4, magnesium more than 2. Continue the rest of his medications as is. Keep a close eye on his blood pressure. I discussed this at length with the patient, his in the room, his 2 sons in the room. He is amenable. He is willing to proceed. We will get him scheduled tentatively for tomorrow morning. We will try to obtain all his cardiology records from [place]. TIME SPENT: More than half of at least 60 to 65 plus minutes was in the face-to - face education and counseling mode, explaining all the above, making further recommendations, and answering their questions. [id number]/[facility] #: [id number] GILMAR
[2019-01-27] MEDS: Atorvastatin* 40 MG TAB PO SCH (17:17)
[2019-01-27] MEDS ORDERED: Insulin NPH(*) 1 UNITS UNIT SUBCUT SCH (21:00)
[2019-01-28] MEDS: Heparin VIAL(*) 5000 UNITS/ML VIAL (FIVE THOUSAND) SUBCUT SCH ×3 (05:29→21:11)
[2019-01-28] MEDS: Insulin LISPRO* 1 UNITS UNIT SUBCUT SCH ×4 (08:41→21:11)
[2019-01-28] MEDS: Hydrochlorothiazide TAB* 25 MG PO SCH (08:45)
[2019-01-28] MEDS: amLODIPine TAB* 5 MG PO SCH (08:45)
[2019-01-28] MEDS: Aspirin EC TAB* 81 MG TAB.EC PO SCH (08:45)
[2019-01-28] MEDS ORDERED: Diazepam TAB(*) 5 MG PO ONE (15:07)
[2019-01-28] MEDS ORDERED: ceFAZolin 1 GM/10 ML flush(*) SYRINGE for pocket flush (cardiology) FLUSH ONE (15:07)
[2019-01-28] MEDS ORDERED: ceFAZolin 2 GM PREMIX in ORs 2 GM/50 ML BAG IVPB ONE (15:07)
[2019-01-28] MEDS ORDERED: NS 0.9% 1000 ML** 1,000 ML IV SCH (15:15)
[2019-01-28] MEDS ORDERED: Lidocaine 1% INJ* 10 MG/ML 30 ML SDV ONE (15:20)
[2019-01-28] MEDS ORDERED: fentaNYL* 50 MCG/ML 2 ML VIAL (100 MCG VIAL) ONE (15:34)
[2019-01-28] MEDS ORDERED: Midazolam* 1 MG/ML 5 ML VIAL (5 MG) ONE (15:34)
--- NOTE | 2019-01-28 15:34 | ECHO ---
Patient: LUZ HARDING [facility] Rec#: [id number] : 1940 Date: 01/28/2019 Age: 79y Height: 178 cm / 70.1 in Weight: 92.3 kg / 203.4 lbs Sex: M BSA: 2.1 Room#: 434 Admit Date#: 01/26/2019 Type: Inpatient Referring: Cinthya Campos MD Reading: Tamir Hatch MD Moving Worker: Iva Alonso RN RDCS CC: Jae Hernandez MD Transthoracic Echocardiogram Indication: CHF, Bradycardia, Heart block BP: 153/48 HR: 42 Rhythm: Bradycardia Findings History: CAD, CABG, coronary stenting, HTN, HLD, DM Technical Comments: The study quality is fair. The study is technically limited due to patient body habitus. Left Ventricle: The left ventricular chamber size is normal. Mild concentric left ventricular hypertrophy is observed. Global left ventricular wall motion and contractility are within normal limits. There is normal left ventricular systolic function. The estimated ejection fraction is greater than 65%. Left Atrium: The left atrium is moderately dilated. Right Ventricle: The right ventricular chamber size and systolic function are within normal limits. Right Atrium: The right atrium is mild to moderately dilated. There is evidence of an atrial septal aneurysm. Aortic Valve: The aortic valve is trileaflet. The aortic valve leaflets are moderately thickened. Systolic excursion of the aortic valve cusps is reduced. There is no evidence of aortic regurgitation. There is mild aortic stenosis. The mean gradient of the aortic valve is 13 mmHg. The peak instantaneous gradient of the aortic valve is 24 mmHg. The aortic valve area, by peak velocities, is calculated at 1.8 cm2. The aortic valve area, by VTI's, is calculated at 1.9 cm2. The highest aortic valve velocity was obtained with the standard probe from the A3C view. Mitral Valve: Moderate mitral annular calcification present. The mitral valve leaflets are mildly thickened. There is mild mitral regurgitation. There is borderline mitral stenosis. Tricuspid Valve: The tricuspid valve leaflets are normal. There is mild tricuspid regurgitation. Unable to estimate the right ventricular systolic pressure. There is no tricuspid stenosis. Pulmonic Valve: The pulmonic valve appears normal. There is moderate pulmonic regurgitation. There is no pulmonic stenosis. Pericardium: There is no significant pericardial effusion. A pericardial fat pad is visualized. Aorta: There is moderate dilatation of the ascending aorta. The aortic arch is not well visualized. There is no dilation of the aortic root. Pulmonary Artery: The main pulmonary artery appears normal. Venous: The inferior vena cava appears normal in size. There is less than 50% respiratory change in the inferior vena cava dimension. Summary: There are no significant changes when compared to the previous study done on 09/26/18 Conclusions Mild concentric left ventricular hypertrophy is observed. Global left ventricular wall motion and contractility are within normal limits. There is normal left ventricular systolic function. The estimated ejection fraction is greater than 65%. The aortic valve leaflets are moderately thickened. There is mild aortic stenosis. The mean gradient of the aortic valve is 13 mmHg. The mitral valve leaflets are mildly thickened. There is mild mitral regurgitation. There is mild tricuspid regurgitation. Unable to estimate the right ventricular systolic pressure. There is no significant pericardial effusion. There are no significant changes when compared to the previous study done on 09/26/18 There is moderate dilatation of the ascending aorta. Measurements Name Value Normal Range RVIDd (AP) 2D 2.8 cm (0.9 - 2.6) RVDdMajor (2D) 4.2 cm (2.2 - 4.4) RAd ISD 4CH 5.6 cm (3.4 - 4.9) RA (A4C)W 4.3 cm (2.9 - 4.6) IVSd (2D) 1.2 cm (0.6 - 1) LVPWd (2D) 1.2 cm (0.6 - 1) LVIDd (2D) 5.2 cm (3.6 - 5.4) LVIDs (2D) 3.6 cm - LV FS (2D) 31 % (25 - 45) Aortic Annulus 2.3 cm (1.4 - 2.6) Ao root diameter (2D) 3.4 cm (2.1 - 3.5) Ascending Ao 4.4 cm (2.1 - 3.4) LA dimension (AP) 2D 4.7 cm (2.3 - 3.8) LAd ISD 4CH 6.5 cm (2.9 - 5.3) LA ISD 4CH W 5 cm (2.5 - 4.5) Name Value Normal Range LA ESV BP (A/L) index 51 ml/m2 - Name Value Normal Range MV E-wave Vmax 1.2 m/sec - MV deceleration time 289 msec - MV A-wave Vmax 1.7 m/sec - MV E:A ratio 0.7 ratio - LV septal e' Vmax 0.14 m/sec - LV E:e' septal ratio 8.6 ratio - Name Value Normal Range AV Vmax 2.4 m/sec - AV VTI 60.2 cm - AV peak gradient 24 mmHg - AV mean gradient 13 mmHg - LVOT diameter 2 cm - LVOT Vmax 1.4 m/sec - LVOT VTI 37.1 cm - LVOT peak gradient 7 mmHg - LVOT mean gradient 4 mmHg - DOI (VTI) 0.62 ratio - DOI (Vmax) 0.58 ratio - LISA (continuity Vmax) 1.8 cm2 - LISA (continuity VTI) 1.9 cm2 - Name Value Normal Range MV Vmax 2.2 m/sec - MV VTI 74 cm - MV peak gradient 18 mmHg - MV mean gradient 3 mmHg - MV PHT 89 msec - MVA (PHT) 2.5 cm2 - MVA (continuity VTI) 1.6 cm2 - Name Value Normal Range IVC diameter 1.9 cm - Name Value Normal Range PV Vmax 1.3 m/sec -
[2019-01-28] MEDS ORDERED: ceFAZolin VIAL 1 GM in NS *SYRINGE * * 10 ML ONE (16:00)
[2019-01-28] MEDS ORDERED: oxyCODONE/Acetamin 5/325 MG* TAB PO PRN (17:08)
[2019-01-28] MEDS: Atorvastatin* 40 MG TAB PO SCH (18:07)
--- NOTE | 2019-01-28 18:54 | PN ---
Subjective Date of Service: 01/28/19 Interval History: No c/o. Objective Active Medications: Acetaminophen (Tylenol Tab*) 650 mg PO Q4H PRN PRN Reason: FEVER/PAIN Amlodipine Besylate (Norvasc Tab*) 10 mg PO DAILY [facility] Last Admin: 01/28/19 08:45 Dose: 10 mg Aspirin (Aspirin Ec Tab*) 81 mg PO DAILY [facility] Last Admin: 01/28/19 08:45 Dose: 81 mg Atorvastatin Calcium (Lipitor*) 40 mg PO 1700 [facility] Last Admin: 01/28/19 18:07 Dose: 40 mg Dextrose (D50w Syringe 50 Ml*) 12.5 gm IV PUSH .FOR FS < 60 - SS PRN PRN Reason: FS < 60 Heparin Sodium (Porcine) (Heparin Vial(*)) 5,000 units SUBCUT Q8HR [facility] Last Admin: 01/28/19 13:14 Dose: Not Given Hydrochlorothiazide (Hydrodiuril Tab*) 12.5 mg PO DAILY [facility] Last Admin: 01/28/19 08:45 Dose: 12.5 mg Sodium Chloride (Ns 0.9% 1000 Ml) 1,000 mls @ 100 mls/hr IV PER RATE [facility] Cefazolin Sodium 1 gm/ Sodium (Chloride) 50 mls @ 200 mls/hr IVPB Q8H [facility] Stop: 01/29/19 16:14 Insulin Human Lispro (Humalog*) 0 units SUBCUT ACHS [facility]; Protocol Last Admin: 01/28/19 18:07 Dose: 1 units Insulin Human NPH (Insulin Nph(*)) 15 units SUBCUT BEDTIME [facility] Last Admin: 01/27/19 22:28 Dose: 15 units Metoprolol Succinate (Toprol Xl Tab*) 25 mg PO DAILY [facility] Morphine Sulfate (Morphine Inj (Syringe))*) 1 mg IV Q4H PRN PRN Reason: PAIN - MILD Oxycodone/Acetaminophen (Percocet 5/325 Tab*) 1 tab PO Q4H PRN PRN Reason: PAIN Pioglitazone HCl (Actos Tab*) 30 mg PO DAILY [facility] Vital Signs - 8 hr 01/28/19 01/28/19 01/28/19 11:08 17:08 17:31 Temperature 98.2 F Pulse Rate 45 82 Respiratory 20 Rate Blood Pressure 153/48 138/68 (mmHg) O2 Sat by Pulse 96 94 93 Oximetry 01/28/19 01/28/19 01/28/19 17:38 18:01 18:08 Temperature Pulse Rate Respiratory Rate Blood Pressure 124/69 (mmHg) O2 Sat by Pulse 96 94 Oximetry 01/28/19 01/28/19 18:34 18:38 Temperature 97.7 F Pulse Rate 78 Respiratory 14 Rate Blood Pressure 147/62 (mmHg) O2 Sat by Pulse 96 96 Oximetry Oxygen Devices in Use Now: None Appearance: Alert, partly up in bed. In good spirits. Looks comfortable. L arm in restraining device. Extremities: No Edema, No Clubbing, Cyanosis, - Skin: No Rash or Ulcers, No Nodules or Sclerosis, - Neurological: Alert and Oriented x 3, NL Sensation Result Diagrams: 01/27/19 07:22 01/27/19 07:22 Additional Lab and Data: Lab Results 01/26/19 01/26/19 01/26/19 Range/Units 17:59 18:06 18:06 WBC 7.4 (3.5-10.8) 10^3/uL RBC 3.50 L (4.18-5.48) 10^6 /uL Hgb 11.4 L (14.0-18.0) g/dL Hct 34 L (36-46) % MCV 96 H (80-94) fL MCH 33 H (27-31) pg MCHC 34 (31-36) g/dL RDW 14 (10.5-15) % Plt Count 121 L (150-450) 10^3/uL MPV 9.8 (7.4-10.4) fL Neut % (Auto) 64.1 % Lymph % (Auto) 21.7 % Prow[place] % (Auto) 10.3 % Eos % (Auto) 3.5 % Baso % (Auto) 0.4 % Absolute Neuts (auto) 4.7 (1.5-7.7) 10^3/ul Absolute Lymphs (auto) 1.6 (1.0-4.8) 10^3/ul Absolute Monos (auto) 0.8 (0-0.8) 10^3/ul Absolute Eos (auto) 0.3 (0-0.6) 10^3/ul Absolute Basos (auto) 0 (0-0.2) 10^3/ul Absolute Nucleated RBC 0 10^3/ul Nucleated RBC % 0.1 INR (Anticoag Therapy) (0.77-1.02) Sodium 138 (135-145) mmol/L Potassium 5.7 H (3.5-5.0) mmol/L Chloride 106 (101-111) mmol/L Carbon Dioxide 23 (22-32) mmol/L Anion Gap 9 (2-11) mmol/L BUN 51 H (6-24) mg/dL Creatinine 1.76 H (0.67-1.17) mg/dL Est GFR ( Amer) 45.4 (>60) Est GFR (Non-Af Amer) 37.5 (>60) BUN/Creatinine Ratio 29.0 H (8-20) Glucose 169 H (70-100) mg/dL Lactic Acid (0.5-2.0) mmol/L Calcium 9.1 (8.6-10.3) mg/dL Magnesium 2.1 (1.9-2.7) mg/dL Total Bilirubin 0.50 (0.2-1.0) mg/dL AST 20 (13-39) U/L ALT 33 (7-52) U/L Alkaline Phosphatase 97 (34-104) U/L Troponin I (<0.04) ng/mL C-Reactive Protein 23.66 H (<8.01) mg/L B-Natriuretic Peptide 638 H (<=100) pg/mL Total Protein 6.4 (6.4-8.9) g/dL Albumin 3.8 (3.2-5.2) g/dL Globulin 2.6 (2-4) g/dL Albumin/Globulin Ratio 1.5 (1-3) TSH 2.80 (0.34-5.60) mcIU/mL Urine Color Urine Appearance Urine pH (5-9) Ur Specific S[place] (1.010-1.030) Urine Protein (Negative) Urine Ketones (Negative) Urine Blood (Negative) Urine Nitrate (Negative) Urine Bilirubin (Negative) Urine Urobilinogen (Negative) Ur Leukocyte Esterase (Negative) Urine WBC (Auto) (Absent) Urine RBC (Auto) (Absent) Urine Bacteria (Absent) Urine Glucose (Negative) Urine Ascorbic Acid (Negative) 01/26/19 01/26/19 01/26/19 Range/Units 18:06 18:06 18:06 WBC (3.5-10.8) 10^3/uL RBC (4.18-5.48) 10^6 /uL Hgb (14.0-18.0) g/dL Hct (36-46) % MCV (80-94) fL MCH (27-31) pg MCHC (31-36) g/dL RDW (10.5-15) % Plt Count (150-450) 10^3/uL MPV (7.4-10.4) fL Neut % (Auto) % Lymph % (Auto) % Prowers % (Auto) % Eos % (Auto) % Baso % (Auto) % Absolute Neuts (auto) (1.5-7.7) 10^3/ul Absolute Lymphs (auto) (1.0-4.8) 10^3/ul Absolute Monos (auto) (0-0.8) 10^3/ul Absolute Eos (auto) (0-0.6) 10^3/ul Absolute Basos (auto) (0-0.2) 10^3/ul Absolute Nucleated RBC 10^3/ul Nucleated RBC % INR (Anticoag Therapy) 0.98 (0.77-1.02) Sodium (135-145) mmol/L Potassium (3.5-5.0) mmol/L Chloride (101-111) mmol/L Carbon Dioxide (22-32) mmol/L Anion Gap (2-11) mmol/L BUN (6-24) mg/dL Creatinine (0.67-1.17) mg/dL Est GFR ( Amer) (>60) Est GFR (Non-Af Amer) (>60) BUN/Creatinine Ratio (8-20) Glucose (70-100) mg/dL Lactic Acid 3.1 H* (0.5-2.0) mmol/L Calcium (8.6-10.3) mg/dL Magnesium (1.9-2.7) mg/dL Total Bilirubin (0.2-1.0) mg/dL AST (13-39) U/L ALT (7-52) U/L Alkaline Phosphatase (34-104) U/L Troponin I 0.01 (<0.04) ng/mL C-Reactive Protein (<8.01) mg/L B-Natriuretic Peptide (<=100) pg/mL Total Protein (6.4-8.9) g/dL Albumin (3.2-5.2) g/dL Globulin (2-4) g/dL Albumin/Globulin Ratio (1-3) TSH (0.34-5.60) mcIU/mL Urine Color Urine Appearance Urine pH (5-9) Ur Specific [place] (1.010-1.030) Urine Protein (Negative) Urine Ketones (Negative) Urine Blood (Negative) Urine Nitrate (Negative) Urine Bilirubin (Negative) Urine Urobilinogen (Negative) Ur Leukocyte Esterase (Negative) Urine WBC (Auto) (Absent) Urine RBC (Auto) (Absent) Urine Bacteria (Absent) Urine Glucose (Negative) Urine Ascorbic Acid (Negative) 01/26/19 Range/Units 19:25 WBC (3.5-10.8) 10^3/uL RBC (4.18-5.48) 10^6 /uL Hgb (14.0-18.0) g/dL Hct (36-46) % MCV (80-94) fL MCH (27-31) pg MCHC (31-36) g/dL RDW (10.5-15) % Plt Count (150-450) 10^3/uL MPV (7.4-10.4) fL Neut % (Auto) % Lymph % (Auto) % Prowers % (Auto) % Eos % (Auto) % Baso % (Auto) % Absolute Neuts (auto) (1.5-7.7) 10^3/ul Absolute Lymphs (auto) (1.0-4.8) 10^3/ul Absolute Monos (auto) (0-0.8) 10^3/ul Absolute Eos (auto) (0-0.6) 10^3/ul Absolute Basos (auto) (0-0.2) 10^3/ul Absolute Nucleated RBC 10^3/ul Nucleated RBC % INR (Anticoag Therapy) (0.77-1.02) Sodium (135-145) mmol/L Potassium (3.5-5.0) mmol/L Chloride (101-111) mmol/L Carbon Dioxide (22-32) mmol/L Anion Gap (2-11) mmol/L BUN (6-24) mg/dL Creatinine (0.67-1.17) mg/dL Est GFR ( Amer) (>60) Est GFR (Non-Af Amer) (>60) BUN/Creatinine Ratio (8-20) Glucose (70-100) mg/dL Lactic Acid (0.5-2.0) mmol/L Calcium (8.6-10.3) mg/dL Magnesium (1.9-2.7) mg/dL Total Bilirubin (0.2-1.0) mg/dL AST (13-39) U/L ALT (7-52) U/L Alkaline Phosphatase (34-104) U/L Troponin I (<0.04) ng/mL C-Reactive Protein (<8.01) mg/L B-Natriuretic Peptide (<=100) pg/mL Total Protein (6.4-8.9) g/dL Albumin (3.2-5.2) g/dL Globulin (2-4) g/dL Albumin/Globulin Ratio (1-3) TSH (0.34-5.60) mcIU/mL Urine Color Yellow Urine Appearance Clear Urine pH 5.0 (5-9) Ur Specific S[place] 1.011 (1.010-1.030) Urine Protein 1+(30 mg/dl) A (Negative) Urine Ketones Trace A (Negative) Urine Blood Negative (Negative) Urine Nitrate Negative (Negative) Urine Bilirubin Negative (Negative) Urine Urobilinogen Negative (Negative) Ur Leukocyte Esterase Negative (Negative) Urine WBC (Auto) Absent (Absent) Urine RBC (Auto) Absent (Absent) Urine Bacteria Absent (Absent) Urine Glucose 1+(50 mg/dl) A (Negative) Urine Ascorbic Acid * A (Negative) Assess/Plan/Problems-Billing Assessment: - Patient Problems (1) Second degree heart block Current Visit: Yes Status: Acute Code(s): I44.1 - ATRIOVENTRICULAR BLOCK, SECOND DEGREE SNOMED Code(s): 619924367 Comment: S/P PPM impolantation 01/[address] Hatch. Resume home dose metoprolol succinate in AM 01/29. (2) CAD (coronary artery disease) Current Visit: Yes Status: Acute Code(s): I25.10 - ATHSCL HEART DISEASE OF [place] CORONARY ARTERY W/O ANG PCTRS SNOMED Code(s): 07640741 Comment: CABG many years ago. Stents more recently. Had "complete checkup" with his senior administrative support in [place] 10/2018. (3) Diabetes Current Visit: Yes Status: Acute Code(s): E11.9 - TYPE 2 DIABETES MELLITUS WITHOUT COMPLICATIONS SNOMED Code(s): 90476922 Comment: Metformin and glyburide on hold. Take N insulin 20 U bedtime, will give 18 U hs start 01/28. SSI.
[2019-01-28] MEDS ORDERED: Insulin NPH(*) 1 UNITS UNIT SUBCUT SCH (21:00)
[2019-01-28] MEDS ORDERED: Metoprolol Tartrate TAB* 25 MG PO ONE (21:06)
[2019-01-28] MEDS: ceFAZolin VIAL(*) 1 GM in NS 0.9% 50 ML* 50 ML IVPB SCH (23:53)
[2019-01-29] MEDS: Heparin VIAL(*) 5000 UNITS/ML VIAL (FIVE THOUSAND) SUBCUT SCH (06:20)
[2019-01-29] MEDS: Insulin LISPRO* 1 UNITS UNIT SUBCUT SCH ×2 (08:11→13:01)
[2019-01-29] MEDS: ceFAZolin VIAL(*) 1 GM in NS 0.9% 50 ML* 50 ML IVPB SCH (08:31)
[2019-01-29] MEDS: Hydrochlorothiazide TAB* 25 MG PO SCH (08:31)
[2019-01-29] MEDS: amLODIPine TAB* 5 MG PO SCH (08:32)
[2019-01-29] MEDS: Aspirin EC TAB* 81 MG TAB.EC PO SCH (08:32)
[2019-01-29] MEDS ORDERED: Metoprolol Succinate XL TAB* 50 MG PO SCH ×2 (09:00)
[2019-01-29] MEDS ORDERED: Pioglitazone TAB* 30 MG PO SCH (09:00)
--- NOTE | 2019-01-29 09:58 | PN ---
Subjective Date of Service: 01/29/19 - s/p PPM implant 01/28/2019 due to 2:1 AVB Interval History: No events last night, He denies chest pain, sob, lopez, palpations or dizziness. He was sitting in chair watching TV when I entered room and offers no complaints. Medications Active Medications: Acetaminophen (Tylenol Tab*) 650 mg PO Q4H PRN PRN Reason: FEVER/PAIN Amlodipine Besylate (Norvasc Tab*) 10 mg PO DAILY [facility] Last Admin: 01/29/19 08:32 Dose: 10 mg Aspirin (Aspirin Ec Tab*) 81 mg PO DAILY [facility] Last Admin: 01/29/19 08:32 Dose: 81 mg Atorvastatin Calcium (Lipitor*) 40 mg PO 1700 [facility] Last Admin: 01/28/19 18:07 Dose: 40 mg Dextrose (D50w Syringe 50 Ml*) 12.5 gm IV PUSH .FOR FS < 60 - SS PRN PRN Reason: FS < 60 Heparin Sodium (Porcine) (Heparin Vial(*)) 5,000 units SUBCUT Q8HR [facility] Last Admin: 01/29/19 06:20 Dose: 5,000 units Hydrochlorothiazide (Hydrodiuril Tab*) 12.5 mg PO DAILY [facility] Last Admin: 01/29/19 08:31 Dose: 12.5 mg Cefazolin Sodium 1 gm/ Sodium (Chloride) 50 mls @ 200 mls/hr IVPB Q8H [facility] Stop: 01/29/19 16:14 Last Admin: 01/29/19 08:31 Dose: 200 mls/hr Insulin Human Lispro (Humalog*) 0 units SUBCUT ACHS [facility]; Protocol Last Admin: 01/29/19 08:11 Dose: Not Given Insulin Human NPH (Insulin Nph(*)) 18 units SUBCUT BEDTIME [facility] Last Admin: 01/28/19 21:11 Dose: 18 units Metoprolol Succinate (Toprol Xl Tab*) 50 mg PO DAILY [facility] Last Admin: 01/29/19 08:32 Dose: 50 mg Morphine Sulfate (Morphine Inj (Syringe))*) 1 mg IV Q4H PRN PRN Reason: PAIN - MILD Oxycodone/Acetaminophen (Percocet 5/325 Tab*) 1 tab PO Q4H PRN PRN Reason: PAIN Objective Vital Signs: Temp Pulse Resp BP Pulse Ox 97.7 F 82 18 142/65 94 01/28/19 18:34 01/29/19 07:01 01/29/19 07:57 01/29/19 07:01 01/29/19 07:57 Oxygen Devices in Use Now: None Appearance: Sitting in chair, NAD, A+O x3, cooperative with exam Ears/Nose/Mouth/Throat: NL Teeth, Lips, Gums, Mucous Membranes Moist Neck: NL Appearance and Movements; NL JVP Respiratory: Symmetrical Chest Expansion and Respiratory Effort, Clear to Auscultation Cardiovascular: No Edema, - - Normal S1, S2, grade 2/6 early systolic AV mumur radiating across entire pericardium, no gallop or rub Abdominal: NL Sounds; No Tenderness; No Distention Extremities: No Edema Skin: No Rash or Ulcers, - - left anterior chest device site is intact, scant blood noted on dressing. No hematoma. Non tender to palpation. wound edges are well approximated with [address] Neurological: Alert and Oriented x 3 Lines/Tubes/Other Access: Clean, Dry and Intact Peripheral IV Laboratory Results: 01/27/19 07:22 01/27/19 07:22 INR (Anticoag Therapy) 0.98 (0.77-1.02) 01/26/19 18:06 Total Bilirubin 0.50 mg/dL (0.2-1.0) 01/26/19 18:06 AST 20 U/L (13-39) 01/26/19 18:06 ALT 33 U/L (7-52) 01/26/19 18:06 Alkaline Phosphatase 97 U/L (34-104) 01/26/19 18:06 B-Natriuretic Peptide 638 pg/mL (<=100) H 01/26/19 17:59 Total Protein 6.4 g/dL (6.4-8.9) 01/26/19 18:06 Albumin 3.8 g/dL (3.2-5.2) 01/26/19 18:06 Globulin 2.6 g/dL (2-4) 01/26/19 18:06 Albumin/Globulin Ratio 1.5 (1-3) 01/26/19 18:06 TSH 2.80 mcIU/mL (0.34-5.60) 01/26/19 18:06 01/26/19 01/26/19 01/27/19 18:06 20:59 00:22 Troponin I 0.01 0.02 0.02 Laboratory Results - last 24 hr 01/28/19 01/28/19 01/28/19 11:44 17:41 20:35 POC Glucose (mg/dL) 182 H 143 H 252 H 01/29/19 07:09 POC Glucose (mg/dL) 117 H Diagnostic Imaging: Patient: LUZ HARDING [facility] Rec#: [id number] : 1940 Date: 01/28/2019 Age: 79y Height: 178 cm / 70.1 in Weight: 92.3 kg / 203.4 lbs Sex: M BSA: 2.1 Room#: 434 Admit Date#: 01/26/2019 Type: Inpatient Referring: Cinthya Campos MD Reading: Tamir Hatch MD Print Binding Worker: Iva Alonso RN RDCS CC: Jae Hernandez MD Transthoracic Echocardiogram Indication: CHF, Bradycardia, Heart block BP: 153/48 HR: 42 Rhythm: Bradycardia Findings History: CAD, CABG, coronary stenting, HTN, HLD, DM Technical Comments: The study quality is fair. The study is technically limited due to patient body habitus. Left Ventricle: The left ventricular chamber size is normal. Mild concentric left ventricular hypertrophy is observed. Global left ventricular wall motion and contractility are within normal limits. There is normal left ventricular systolic function. The estimated ejection fraction is greater than 65%. Left Atrium: The left atrium is moderately dilated. Right Ventricle: The right ventricular chamber size and systolic function are within normal limits. Right Atrium: This report is only to be considered final once signed by the Provider(s) as displayed in the "<Electronically Signed by >" field (s). Absence of a signature indicates the report is in a draft status and still needs to be finalized. In the event this document was created by someone other than the signing Provider, the individual initiating the document will be listed in the "Entered by:" or "Dictated by:" torres. EKG Data: 01/29/2019; /BIOMETRICS TECHNICIAN rate 83 Assessment/Plan #1 Symptomatic bradycardia with newly diagnosed 2:1 AVB s/p PPM implant with Dr. hatch 01/28/2019. CXR this morning is pending. wound site was inspected no evidence of hematoma, non tender to palpation. He will need to go home on Keflex 250mg PO TIDx3 days. He is to f/u with primary cigarette stamper Dr. Hearn as planned on 01/31/2019. He is to follow up in our practice next week on 2018 at 2pm with me (Oralia Valenzuela) for suture removal and wound inspection. Please refer to discharge activity in regards to LUE restrictions. No driving for 7 days #2 h/o CAD; denies chest pain. Troponin negative x3. Normal wall motion on echo. Continue ASA, statin and Bblocker therapy #3 ho mild ; peak gradient 24, mean 13. follow up with primary cigarette stamper as planned 01/31/2019. #4 Renal insufficiency. Creat upon arrival on 1.7, it did trend down to 1.5 however previously baseline creat was 1.2. will update BMP. #5 disposition pending course. Will update BMP. Please refer to discharge activity in regards to restrictions given patient is s/p PPM implant 01/28/2019. He will need to go home on Keflex 250mg Po TID x3 days. f/u with our practice next week. Attending: Tamir Hatch
[2019-01-29 11:16] LABS: BUN/Creatinine Ratio 20.6 (8-20); Calcium 8.9 mg/dL (8.6-10.3); EGFR African American 63.7 (>60); EGFR Non-African American 52.6 (>60); Potassium 4.2 mmol/L (3.5-5.0)
[2019-01-29 11:22] VITALS: BP 142/71
--- NOTE | 2019-01-29 14:22 | DS ---
CC: Jae Hernandez MD; Oralia Valenzuela NP; Tamir Hatch MD* DISCHARGE SUMMARY: DATE OF ADMISSION: 01/26/19 DATE OF DISCHARGE: 01/29/19 PRIMARY CARE PROVIDER: Jae Hernandez MD. CHAIR CAR DRIVER: Oralia Valenzuela NP; Dr. Tamir Hatch. FINAL DISCHARGE DIAGNOSES: 1. Second-degree arteriovenous block, Mobitz type 2, status post permanent pacemaker. 2. Known history of coronary artery disease. 3. Diabetes mellitus. 4. History of lumbar disk disease, status post laminectomy. 5. Hyperlipidemia. HOSPITAL COURSE: The patient presented to [facility] on 01/26[facility]19 for generalized weakness, headache, and fogginess associated with shortness of breath, progressively getting weak for the past 2 weeks, lack of energy. On presentation via the ER, he was noted to have a second-degree AV block with 2:1 AV block with bradycardia, pulse of 41. It should be noted that he was on metoprolol at home without any dose adjustment. He was evaluated by Cardiology in emergency room. He was placed on transcutaneous pacemaker. Metoprolol was held and he underwent permanent pacemaker on 01/28/[address] Hatch. He was seen and evaluated by Cardiology, Oralia Valenzuela today. Chest x-ray was obtained , reviewed by me and no evidence of pneumothorax. The wound site was inspected by Cardiology without any evidence of hematoma and recommended he is cleared to be discharged on oral Keflex and follow up in their office on 02/05/19 at 2 p.m. and to maintain his needle straightener appointment with Dr. Hearn in [place] on 01/31/19. The patient was seen and evaluated by me. He was deemed stable for discharge. PHYSICAL EXAMINATION: His physical exam today, temperature is 97.7, pulse 85, respiratory rate 16, 95% on room air, blood pressure 142/71. General: He is awake, alert, pleasant, sitting at the edge of the bed, having his lunch, in no distress, tolerating p.o. He has a left arm sling. Cardiovascular: S1 and S2. He does have systolic murmur with no gallop. Lungs: Clear to auscultation , bilateral. Fine bibasilar crackles. Abdomen: Positive bowel sounds, soft, nontender. Extremities: No pedal edema. Some varicose veins. INPATIENT DIAGNOSTIC STUDY: He had the chest x-ray 01/29/19, shows no evidence of pneumothorax. Echocardiogram 01/28/19, revealed ejection fraction 65%, mild aortic stenosis, mild LVH, otherwise no significant valvular disease. EKG revealed evidence of 2:1 block on presentation and the EKG on 01/29/19 revealed a paced rhythm, atrioventricular dual pacemaker. His labs were significant for baseline renal insufficiency with creatinine of 1.7, improved to 1.3 on discharge and troponin was negative x3 sets. TSH was 2.80 with a BNP of 638 on 01/26/19. DISCHARGE MEDICATIONS: He is discharged on: 1. Amlodipine 10 mg daily, resuming. 2. Aspirin 81 daily. 3. Lipitor 40 daily. 4. Vitamin D. 5. CoQ10. 6. Glyburide 6 mg daily. 7. Humulin N 20 units subcutaneously at bedtime. 8. Hydrochlorothiazide 12.5 daily. 9. Lispro as per home regimen. 10. Metformin 1000 mg, he takes 1 full tablet in the morning and half a tab at lunch and half a tab at dinner. 11. Metoprolol was resumed prior to discharge post , 50 mg, was told to continue. 12. Pioglitazone 30 mg daily. 13. Ramipril 10 mg daily. 14. Tylenol as needed for pain. 15. Keflex 250 mg t.i.d. for 3 days. DISCHARGE INSTRUCTION: To follow up with his needle straightener on 01/31/19 as scheduled. Follow up with Oralia Valenzuela on 02/05/19 at 2 p.m. Follow up with the primary care provider in 1 to 2 weeks. The patient no driving for 1 week. He may start sponge bath in about 2 days. Keep the wound dry and then may resume showering in 1 week. Use the left arm sling at all times. Do not reach overhead. Take all medications as prescribed. DISCHARGE DISPOSITION: Going home with family. [id number]/[facility] #: [id number] BRADD
--- NOTE | 2019-01-30 01:25 | OP ---
CC: Dr. Wood; Dr. Hearn, Mortgage [employer], [place] [id number] * DATE OF OPERATION: 01/28/19 - ROOM #43 DATE OF : 38 SURGEON: Tamir Hatch MD ANESTHESIA: Local anesthesia with conscious sedation. PRE-OP DIAGNOSIS: 2:1 heart block bradycardia. POST-OP DIAGNOSIS: 2:1 heart block bradycardia. OPERATIVE PROCEDURE: Dual-chamber pacemaker implantation. ESTIMATED BLOOD LOSS: Nil. COMPLICATIONS: None. INDICATION: The patient is an 79-year-old gentleman with a history of coronary artery disease, history of bradycardia, who is admitted to the hospital with severe fatigue, he was found to be in 2:1 heart block with a ventricular rate of 40 beats per minute. Permanent pacemaker was recommended. DESCRIPTION OF PROCEDURE: The patient was brought to the procedure room in a fasting state. Informed consent had been obtained prior to the procedure. All labs were reviewed. The patient was placed supine on the procedure table. His left deltopectoral area was cleaned and draped in the usual fashion. 1% lidocaine was used for local anesthesia. The axillary vein was entered by a modified Seldinger technique using ultrasound guidance. A guidewire was placed. A second guidewire was placed in the same technique. A 3.5 cm incision was made in the pectoral area and blunt dissection was carried down to the pectoral muscles. A small pocket was fashioned for the pacemaker. Over the first guidewire, a 7-Telugu sheath introducer was placed, through which a right ventricular lead was advanced to the right ventricle. The right ventricular lead is a Medtronic, model 5076, serial# [id number] that had a R- wave sensitivity of 3.9, impedance 640 ohms, threshold 0.5 volts at 0.4 milliseconds. The ventricular lead was sutured to the pectoral fascia. Over the second guidewire, a 7-Telugu sheath introducer was placed, through which a right atrial lead was advanced to the high right atrium. The right atrial lead is a Medtronic, model 5076, serial# [id number] that had a P- wave sensitivity of 0.9, impedance 442 ohms, threshold 1 volt at 0.5 milliseconds. The atrial lead was sutured to the pectoral fascia. The pocket was flushed with normal saline. A generator was attached appropriately to the atrioventricular lead. The generator is a [employer]son, model W1DR01, serial# [id number]. The device was placed in the pocket. The surgical incision was closed in 3 layers. The patient tolerated the procedure well with no complications. [id number]/[facility] #: [id number] GILMAR
== END 2019-01-29 13:00 | disposition home or self-care (01) | DRG 244 ==
LOC: ED 17:24 → EDHOLD 21:25 → SSU 01-27 11:15 → MEDTELE 01-27 11:53
PROVIDERS: ADMIT Internal Medicine; ATTEND Internal Medicine
PROC: 02HK3JZ Insertion of Pacemaker Lead into Right Ventricle, Percutaneous Approach (ICD-10-PCS; 2019-01-28)
PROC: 02H63JZ Insertion of Pacemaker Lead into Right Atrium, Percutaneous Approach (ICD-10-PCS; 2019-01-28)
PROC: 0JH606Z Insertion of Pacemaker, Dual Chamber into Chest Subcutaneous Tissue and Fascia, Open Approach (ICD-10-PCS; principal; 2019-01-28 15:00)
DX: I44.1 Atrioventricular block, second degree (principal); I25.10 Atherosclerotic heart disease of native coronary artery without angina pectoris; E78.5 Hyperlipidemia, unspecified; M54.9 Dorsalgia, unspecified; R00.0 Tachycardia, unspecified; E87.5 Hyperkalemia; E11.22 Type 2 diabetes mellitus with diabetic chronic kidney disease; G47.30 Sleep apnea, unspecified; M19.90 Unspecified osteoarthritis, unspecified site; M06.9 Rheumatoid arthritis, unspecified; G89.4 Chronic pain syndrome; I12.9 Hypertensive chronic kidney disease with stage 1 through stage 4 chronic kidney disease, or unspecified chronic kidney disease; N18.3 Chronic kidney disease, stage 3 (moderate); E66.9 Obesity, unspecified; R40.2362 Coma scale, best motor response, obeys commands, at arrival to emergency department; R40.2142 Coma scale, eyes open, spontaneous, at arrival to emergency department; R40.2252 Coma scale, best verbal response, oriented, at arrival to emergency department; Z68.28 Body mass index [BMI] 28.0-28.9, adult; Z95.1 Presence of aortocoronary bypass graft; Z95.5 Presence of coronary angioplasty implant and graft; Z88.2 Allergy status to sulfonamides; Z83.3 Family history of diabetes mellitus; Z82.49 Family history of ischemic heart disease and other diseases of the circulatory system; Z98.42 Cataract extraction status, left eye; Z98.41 Cataract extraction status, right eye; Z87.891 Personal history of nicotine dependence; Z98.1 Arthrodesis status; Z79.82 Long term (current) use of aspirin; Z79.4 Long term (current) use of insulin
CPT/HCPCS: 33208; 36415; 71045; 71046; 80048; 80053; 81003; 81015; 83605; 83735; 83880; 84443; 84484; 85025; 85610; 86140; 93005; 93306; 99156; 99157; 99285; A9270-GY; C1785; C1892; C1898; J0690; J1644; J1940; J2250; J3010

== ENCOUNTER 2020-04-05 20:09 | Inpatient (IN) ==
[2020-04-05] MEDS ORDERED: NS 0.9% 1000 ml BAG 1,000 ML IV ONE (20:21)
[2020-04-05 20:35] LABS: ABS Eosinophils 0.1 10^3/ul (0-0.6); ABS Lymphocytes 0.4 10^3/ul (1.0-4.8); ABS Monocytes 0.5 10^3/ul (0-0.8); ABS Neutrophils 4.6 10^3/ul (1.5-7.7); Eosinophil % 2.5 %; Hematocrit 34 % (42-52); Hemoglobin 11.9 g/dL (14.0-18.0); Lymphocyte % 6.6 %; Mean Corpuscular HGB Conc 35 g/dL (31-36); Mean Corpuscular Hemoglobin 33 pg (27-31); Mean Corpuscular Volume 94 fL (80-94); Mean Platelet Volume 8.9 fL (7.4-10.4); Nucleated Red Blood Cells % 0.1; Platelet Count 106 10^3/uL (150-450); Red Blood Count 3.62 10^6 /uL (4.18-5.48); Red Cell Distribution Width 14 % (10-15); White Blood Count 5.7 10^3/uL (3.5-10.8)
[2020-04-05 20:52] LABS: ALT 56 U/L (7-52); AST 54 U/L (13-39); Albumin 3.8 g/dL (3.2-5.2); Albumin/Globulin Ratio 1.5 (1-3); Alkaline Phosphatase 114 U/L (34-104); Anion Gap 11 mmol/L (2-11); BUN/Creatinine Ratio 20.1 (8-20); Blood Urea Nitrogen 35 mg/dL (6-24); C Reactive Protein 50.63 mg/L (<8.01); CO2 Carbon Dioxide 22 mmol/L (22-32); Calcium 9.2 mg/dL (8.6-10.3); Chloride 100 mmol/L (101-111); EGFR African American 45.8 (>60); EGFR Non-African American 37.8 (>60); Globulin 2.6 g/dL (2-4); Glucose 308 mg/dL (70-100); Magnesium 1.4 mg/dL (1.9-2.7); Potassium 4.8 mmol/L (3.5-5.0); Sodium 133 mmol/L (135-145); Total Protein 6.4 g/dL (6.4-8.9)
[2020-04-05 21:10] LABS: Alcohol, S < 10 mg/dL (<10)
[2020-04-05 21:22] LABS: TSH Ultra Thyroid Stim Horm 0.71 mcIU/mL (0.34-5.60)
[2020-04-05 21:28] LABS: CKMB ng/mL 8.9 ng/mL (0.6-6.3)
[2020-04-05 22:24] LABS: Urine Appearance Clear; Urine Bacteria 1+ (Absent); Urine Color Yellow; Urine Red Blood Cell Absent (Absent); Urine Squamous Epithelial Cell Present (Absent); Urine Urobilinogen Negative (Negative); Urine White Blood Cell Absent (Absent)
[2020-04-05 22:25] LABS: Urine Bilirubin Negative (Negative); Urine Blood Negative (Negative); Urine Glucose Negative (Negative); Urine Ketones Negative (Negative); Urine Nitrite Negative (Negative); Urine Protein Negative (Negative)
[2020-04-05 22:41] LABS: Urine Benzodiazepine Screen None Detected (None Detect); Urine Cannabinoids Screen None Detected (None Detect); Urine Opiates Screen None Detected (None Detect)
[2020-04-05] MEDS ORDERED: Magnesium Sulfate IV 3 GM in NS 0.9% 100 ml BAG 100 ML IVPB ONE (23:04)
[2020-04-05] MEDS ORDERED: Dextrose 50% Syringe 50 ml 25 GM/50 ML SYRINGE IV PUSH PRN ×2 (23:17→23:36)
[2020-04-05] MEDS ORDERED: Ondansetron 4 mg VIAL 2 MG/ML 2 ml VIAL IV PRN (23:43)
[2020-04-05] MEDS ORDERED: Al Hydrox/Mg Hydrox/Simet LIQ 30 ML UDC PO PRN (23:43)
[2020-04-05] MEDS ORDERED: Lactated Ringers 1000 ml BAG 1,000 ML IV SCH (23:45)
[2020-04-05] MEDS ORDERED: Insulin GLARGINE 100 un/ml 10 ml VIAL SUBCUT SCH (23:45)
[2020-04-06 00:22] LABS: Troponin I 3.42 ng/mL (<0.03)
[2020-04-06 00:31] LABS: Activated Partial Thrombo Time 28.8 seconds (26.0-38.0); INR 1.16 (0.82-1.09)
[2020-04-06] MEDS: Heparin 5000 UNITS/ML 1 mL VIAL SUBCUT SCH ×3 (05:09→20:52)
[2020-04-06 05:20] LABS: ABS Eosinophils 0.1 10^3/ul (0-0.6); ABS Lymphocytes 0.3 10^3/ul (1.0-4.8); ABS Monocytes 0.5 10^3/ul (0-0.8); ABS Neutrophils 4.7 10^3/ul (1.5-7.7); Eosinophil % 2.5 %; Hematocrit 32 % (42-52); Hemoglobin 11.4 g/dL (14.0-18.0); Mean Corpuscular HGB Conc 36 g/dL (31-36); Mean Corpuscular Hemoglobin 33 pg (27-31); Mean Corpuscular Volume 92 fL (80-94); Mean Platelet Volume 8.9 fL (7.4-10.4); Platelet Count 103 10^3/uL (150-450); Red Blood Count 3.47 10^6 /uL (4.18-5.48); Red Cell Distribution Width 14 % (10-15); White Blood Count 5.7 10^3/uL (3.5-10.8)
[2020-04-06 05:39] LABS: ALT 55 U/L (7-52); AST 47 U/L (13-39); Albumin 3.7 g/dL (3.2-5.2); Albumin/Globulin Ratio 1.5 (1-3); Alkaline Phosphatase 111 U/L (34-104); Anion Gap 11 mmol/L (2-11); BUN/Creatinine Ratio 20.1 (8-20); Blood Urea Nitrogen 29 mg/dL (6-24); CO2 Carbon Dioxide 23 mmol/L (22-32); Calcium 8.9 mg/dL (8.6-10.3); Chloride 100 mmol/L (101-111); Cholesterol 93 mg/dL; EGFR Non-African American 47.1 (>60); Globulin 2.5 g/dL (2-4); Glucose 204 mg/dL (70-100); HDL Cholesterol 28.2 mg/dL; LDL Cholesterol 45 mg/dL; Potassium 4.2 mmol/L (3.5-5.0); Sodium 134 mmol/L (135-145); Total Protein 6.2 g/dL (6.4-8.9); Triglycerides 100 mg/dL
[2020-04-06] MEDS: cefTRIAXone 1 gm/50 mL NS BAG 1 GM/50 ML BAG IVPB SCH (05:50)
[2020-04-06 06:14] LABS: Troponin I 1.49 ng/mL (<0.03)
[2020-04-06] MEDS: Mirabegron 25 mg ER TAB (NF) PO SCH (09:17)
[2020-04-06] MEDS ORDERED: Perflutren Lipid Microsphere 3 ML VIAL ONE (13:31)
[2020-04-06] MEDS: Insulin GLARGINE 100 un/ml 10 ml VIAL SUBCUT SCH (20:51)
[2020-04-07] MEDS: cefTRIAXone 1 gm/50 mL NS BAG 1 GM/50 ML BAG IVPB SCH (06:14)
[2020-04-07] MEDS: Heparin 5000 UNITS/ML 1 mL VIAL SUBCUT SCH (06:19)
[2020-04-07 08:33] LABS: ABS Eosinophils 0.1 10^3/ul (0-0.6); ABS Lymphocytes 0.5 10^3/ul (1.0-4.8); ABS Monocytes 0.5 10^3/ul (0-0.8); ABS Neutrophils 6.3 10^3/ul (1.5-7.7); Hematocrit 33 % (42-52); Hemoglobin 11.6 g/dL (14.0-18.0); Lymphocyte % 7.3 %; Mean Corpuscular HGB Conc 35 g/dL (31-36); Mean Corpuscular Hemoglobin 32 pg (27-31); Mean Corpuscular Volume 92 fL (80-94); Mean Platelet Volume 9.4 fL (7.4-10.4); Nucleated Red Blood Cells % 0.1; Platelet Count 101 10^3/uL (150-450); Red Cell Distribution Width 14 % (10-15); White Blood Count 7.5 10^3/uL (3.5-10.8)
[2020-04-07 08:50] LABS: BUN/Creatinine Ratio 21.1 (8-20); Calcium 8.6 mg/dL (8.6-10.3); EGFR African American 50.1 (>60); EGFR Non-African American 41.4 (>60); Potassium 3.8 mmol/L (3.5-5.0)
[2020-04-07] MEDS: Mirabegron 25 mg ER TAB (NF) PO SCH (09:42)
[2020-04-07] MEDS: Enoxaparin 40 MG/0.4 ML SYR SUBCUT SCH (21:03)
[2020-04-07] MEDS: Insulin GLARGINE 100 un/ml 10 ml VIAL SUBCUT SCH (21:04)
[2020-04-08] MEDS: cefTRIAXone 1 gm/50 mL NS BAG 1 GM/50 ML BAG IVPB SCH (06:10)
[2020-04-08] MEDS: Mirabegron 25 mg ER TAB (NF) PO SCH (09:56)
[2020-04-08] MEDS: Enoxaparin 40 MG/0.4 ML SYR SUBCUT SCH (20:07)
[2020-04-08] MEDS: Insulin GLARGINE 100 un/ml 10 ml VIAL SUBCUT SCH (20:27)
[2020-04-08 22:42] LABS: Anaplasma phagocytophilum Negative (Negative); B. miyamotoi PCR, B Negative (Negative); Babesia divergens/MO-1 Negative (Negative); Babesia ducani Negative (Negative); Ehrlichia chaffeensis Negative (Negative); Ehrlichia ewingii/canis Negative (Negative); Ehrlichia muris eauclairensis Negative (Negative)
[2020-04-09] MEDS: cefTRIAXone 1 gm/50 mL NS BAG 1 GM/50 ML BAG IVPB SCH (05:46)
[2020-04-09 06:08] LABS: ABS Eosinophils 0.3 10^3/ul (0-0.6); ABS Lymphocytes 0.7 10^3/ul (1.0-4.8); ABS Monocytes 0.4 10^3/ul (0-0.8); ABS Neutrophils 4.7 10^3/ul (1.5-7.7); Eosinophil % 4.7 %; Hematocrit 29 % (42-52); Hemoglobin 10.4 g/dL (14.0-18.0); Lymphocyte % 12.1 %; Mean Corpuscular HGB Conc 36 g/dL (31-36); Mean Corpuscular Hemoglobin 33 pg (27-31); Mean Corpuscular Volume 92 fL (80-94); Mean Platelet Volume 9.7 fL (7.4-10.4); Platelet Count 114 10^3/uL (150-450); Red Cell Distribution Width 13 % (10-15); White Blood Count 6.1 10^3/uL (3.5-10.8)
[2020-04-09 06:26] LABS: ALT 85 U/L (7-52); AST 47 U/L (13-39); Albumin 3.4 g/dL (3.2-5.2); Albumin/Globulin Ratio 1.2 (1-3); Alkaline Phosphatase 140 U/L (34-104); Anion Gap 10 mmol/L (2-11); BUN/Creatinine Ratio 25.5 (8-20); Blood Urea Nitrogen 53 mg/dL (6-24); C Reactive Protein 75.36 mg/L (<8.01); CO2 Carbon Dioxide 25 mmol/L (22-32); Calcium 8.7 mg/dL (8.6-10.3); Chloride 101 mmol/L (101-111); EGFR African American 37.3 (>60); EGFR Non-African American 30.8 (>60); Globulin 2.8 g/dL (2-4); Glucose 219 mg/dL (70-100); Magnesium 1.8 mg/dL (1.9-2.7); Potassium 3.5 mmol/L (3.5-5.0); Sodium 136 mmol/L (135-145); Total Protein 6.2 g/dL (6.4-8.9)
[2020-04-09 06:50] LABS: Folate > 20.00 ng/mL (>3.99)
[2020-04-09 06:51] LABS: Vitamin B12 476 pg/mL (180-914)
[2020-04-09] MEDS: Mirabegron 25 mg ER TAB (NF) PO SCH (08:28)
[2020-04-09] MEDS ORDERED: Magnesium Sulfate 2 gm BAG 2 GM/50 ML BAG IVPB ONE (08:40)
[2020-04-09] MEDS ORDERED: Lactated Ringers 1000 ml BAG 1,000 ML IV SCH (09:00)
[2020-04-09 12:38] LABS: Calcium 8.8 mg/dL (8.6-10.3); EGFR African American 34.2 (>60); EGFR Non-African American 28.3 (>60); Potassium 3.8 mmol/L (3.5-5.0)
[2020-04-09] MEDS ORDERED: NS 0.9% 1000 ml BAG 1,000 ML IV ONE (14:16)
[2020-04-09 18:08] LABS: Urine Appearance Turbid; Urine Bilirubin Negative (Negative); Urine Blood Negative (Negative); Urine Color Yellow; Urine Glucose 1+(50 mg/dL) (Negative); Urine Ketones Negative (Negative); Urine Nitrite Negative (Negative); Urine Protein 1+(30 mg/dL) (Negative); Urine Specific Gravity 1.012 (1.010-1.030); Urine Urobilinogen Negative (Negative)
[2020-04-09 18:15] LABS: Urine Bacteria 1+ (Absent); Urine Granular Casts Present (Absent); Urine Red Blood Cell Absent (Absent); Urine White Blood Cell Trace(0-5/hpf) (Absent)
[2020-04-09 18:20] LABS: Urine Creatinine Concentration 83.31 mg/dL
[2020-04-09 19:25] LABS: BUN/Creatinine Ratio 26.2 (8-20); Calcium 8.5 mg/dL (8.6-10.3); EGFR Non-African American 28.1 (>60); Potassium 3.8 mmol/L (3.5-5.0)
[2020-04-09] MEDS ORDERED: NS 0.9% 1000 ml BAG 1,000 ML IV SCH (19:45)
[2020-04-09] MEDS ORDERED: Insulin GLARGINE 100 un/ml 10 ml VIAL SUBCUT SCH (21:00)
[2020-04-09] MEDS: Enoxaparin 40 MG/0.4 ML SYR SUBCUT SCH (21:23)
[2020-04-10] MEDS: cefTRIAXone 1 gm/50 mL NS BAG 1 GM/50 ML BAG IVPB SCH (05:46)
[2020-04-10 06:21] LABS: Albumin 2.8 g/dL (3.2-5.2); Albumin/Globulin Ratio 1.2 (1-3); EGFR African American 40.6 (>60); EGFR Non-African American 33.6 (>60); Globulin 2.4 g/dL (2-4); Magnesium 1.9 mg/dL (1.9-2.7); Potassium 3.4 mmol/L (3.5-5.0); Total Bilirubin 0.5 mg/dL (0.2-1.0); Total Protein 5.2 g/dL (6.4-8.9)
[2020-04-10 08:02] VITALS: BP 141/51
[2020-04-10] MEDS: Mirabegron 25 mg ER TAB (NF) PO SCH (08:17)
[2020-04-10 10:03] LABS: ABS Eosinophils 0.4 10^3/ul (0-0.6); ABS Lymphocytes 0.7 10^3/ul (1.0-4.8); ABS Monocytes 0.4 10^3/ul (0-0.8); ABS Neutrophils 3.9 10^3/ul (1.5-7.7); Eosinophil % 6.9 %; Hematocrit 23 % (42-52); Hemoglobin 8.1 g/dL (14.0-18.0); Lymphocyte % 12.4 %; Mean Corpuscular HGB Conc 35 g/dL (31-36); Mean Corpuscular Hemoglobin 33 pg (27-31); Mean Corpuscular Volume 93 fL (80-94); Mean Platelet Volume 10.1 fL (7.4-10.4); Platelet Count 96 10^3/uL (150-450); Red Blood Count 2.49 10^6 /uL (4.18-5.48); Red Cell Distribution Width 14 % (10-15); White Blood Count 5.3 10^3/uL (3.5-10.8)
== END 2020-04-10 10:15 | DRG 871 ==
LOC: ED 20:09 → MEDTELE 04-06 00:14
PROVIDERS: ADMIT Pediatrics; ATTEND Hospitalist

== ENCOUNTER 2020-04-09 07:40 | Inpatient (IN) ==
[2020-04-10] MEDS ORDERED: Al Hydrox/Mg Hydrox/Simet LIQ 30 ML UDC PO PRN (11:02)
[2020-04-10] MEDS ORDERED: Senna TAB 8.6 mg TAB PO PRN (11:02)
[2020-04-10] MEDS ORDERED: Dextrose 50% Syringe 50 ml 25 GM/50 ML SYRINGE IV PUSH PRN (11:13)
[2020-04-10] MEDS: Enoxaparin 30 MG/0.3 ML SYR(*) SUBCUT SCH (12:52)
[2020-04-10] MEDS: Insulin LISPRO 100 units/ml(*) SUBCUT SCH ×3 (14:17→20:58)
[2020-04-10] MEDS: DOXYcycline 100 mg CAP (*) PO SCH (20:18)
[2020-04-10] MEDS: Insulin GLARGINE 100 un/ml (*) 10 ml VIAL SUBCUT SCH (20:58)
[2020-04-11 04:41] LABS: ABS Eosinophils 0.4 10^3/ul (0-0.6); ABS Lymphocytes 0.7 10^3/ul (1.0-4.8); ABS Monocytes 0.4 10^3/ul (0-0.8); Eosinophil % 7.6 %; Hematocrit 25 % (42-52); Hemoglobin 8.7 g/dL (14.0-18.0); Lymphocyte % 12.9 %; Mean Corpuscular HGB Conc 36 g/dL (31-36); Mean Corpuscular Hemoglobin 32 pg (27-31); Mean Corpuscular Volume 91 fL (80-94); Mean Platelet Volume 9.8 fL (7.4-10.4); Platelet Count 109 10^3/uL (150-450); Red Blood Count 2.69 10^6 /uL (4.18-5.48); Red Cell Distribution Width 14 % (10-15); White Blood Count 5.2 10^3/uL (3.5-10.8)
[2020-04-11 04:57] LABS: Albumin/Globulin Ratio 1.2 (1-3); BUN/Creatinine Ratio 25.5 (8-20); Calcium 8.6 mg/dL (8.6-10.3); EGFR African American 48.7 (>60); EGFR Non-African American 40.2 (>60); Globulin 2.5 g/dL (2-4); Potassium 3.4 mmol/L (3.5-5.0); Total Bilirubin 0.5 mg/dL (0.2-1.0); Total Protein 5.5 g/dL (6.4-8.9)
[2020-04-11] MEDS: DOXYcycline 100 mg CAP (*) PO SCH ×2 (09:09→21:07)
[2020-04-11] MEDS: Insulin LISPRO 100 units/ml(*) SUBCUT SCH ×4 (09:11→21:09)
[2020-04-11] MEDS: Mirabegron 25 mg TAB (NF) PO SCH (09:19)
[2020-04-11] MEDS: Potassium Chlor 20 meq TAB.ER PO SCH ×2 (09:48→21:07)
[2020-04-11] MEDS: Enoxaparin 30 MG/0.3 ML SYR(*) SUBCUT SCH (12:43)
[2020-04-11] MEDS: Insulin GLARGINE 100 un/ml (*) 10 ml VIAL SUBCUT SCH (21:08)
[2020-04-12 05:32] LABS: BUN/Creatinine Ratio 25.3 (8-20); Calcium 8.9 mg/dL (8.6-10.3); EGFR African American 56.1 (>60); EGFR Non-African American 46.3 (>60); Magnesium 1.6 mg/dL (1.9-2.7); Potassium 3.8 mmol/L (3.5-5.0)
[2020-04-12] MEDS: DOXYcycline 100 mg CAP (*) PO SCH ×2 (08:24→21:11)
[2020-04-12] MEDS: Potassium Chlor 20 meq TAB.ER PO SCH ×2 (08:24→21:12)
[2020-04-12] MEDS: Insulin LISPRO 100 units/ml(*) SUBCUT SCH ×4 (08:25→20:55)
[2020-04-12] MEDS: Mirabegron 25 mg TAB (NF) PO SCH (08:30)
[2020-04-12] MEDS: Enoxaparin 30 MG/0.3 ML SYR(*) SUBCUT SCH (12:33)
[2020-04-12] MEDS: Insulin GLARGINE 100 un/ml (*) 10 ml VIAL SUBCUT SCH (20:58)
[2020-04-13] MEDS: Insulin LISPRO 100 units/ml(*) SUBCUT SCH ×4 (07:30→20:53)
[2020-04-13] MEDS: Potassium Chlor 20 meq TAB.ER PO SCH ×2 (11:16→20:54)
[2020-04-13] MEDS: DOXYcycline 100 mg CAP (*) PO SCH ×2 (11:16→20:54)
[2020-04-13] MEDS: Enoxaparin 30 MG/0.3 ML SYR(*) SUBCUT SCH (11:17)
[2020-04-13] MEDS: Mirabegron 25 mg TAB (NF) PO SCH (11:25)
[2020-04-13] MEDS: MIRABEGRON 25 MG PO SCH (19:12)
[2020-04-13] MEDS: Insulin GLARGINE 100 un/ml (*) 10 ml VIAL SUBCUT SCH (20:51)
[2020-04-14] MEDS: Insulin LISPRO 100 units/ml(*) SUBCUT SCH ×4 (08:17→20:51)
[2020-04-14] MEDS: Potassium Chlor 20 meq TAB.ER PO SCH ×2 (10:22→20:52)
[2020-04-14] MEDS: DOXYcycline 100 mg CAP (*) PO SCH ×2 (10:22→19:49)
[2020-04-14] MEDS: Enoxaparin 30 MG/0.3 ML SYR(*) SUBCUT SCH (13:31)
[2020-04-14] MEDS: MIRABEGRON 25 MG PO SCH (19:47)
[2020-04-14] MEDS ORDERED: Insulin GLARGINE 100 un/ml (*) 10 ml VIAL SUBCUT SCH (21:00)
[2020-04-15 05:48] LABS: Hematocrit 27 % (42-52); Hemoglobin 9.7 g/dL (14.0-18.0); Mean Corpuscular HGB Conc 36 g/dL (31-36); Mean Corpuscular Hemoglobin 33 pg (27-31); Mean Corpuscular Volume 91 fL (80-94); Mean Platelet Volume 9.4 fL (7.4-10.4); Platelet Count 204 10^3/uL (150-450); Red Blood Count 2.96 10^6 /uL (4.18-5.48); Red Cell Distribution Width 14 % (10-15); White Blood Count 7.2 10^3/uL (3.5-10.8)
[2020-04-15 06:06] LABS: Albumin 3.3 g/dL (3.2-5.2); Albumin/Globulin Ratio 1.2 (1-3); BUN/Creatinine Ratio 19.5 (8-20); Calcium 9.8 mg/dL (8.6-10.3); EGFR African American 52.7 (>60); EGFR Non-African American 43.6 (>60); Globulin 2.7 g/dL (2-4); Potassium 4.2 mmol/L (3.5-5.0); Total Bilirubin 0.5 mg/dL (0.2-1.0)
[2020-04-15 06:31] VITALS: BP 108/39
[2020-04-15 07:16] LABS: ABS Eosinophils 0.3 10^3/ul (0-0.6); ABS Lymphocytes 1.3 10^3/ul (1.0-4.8); ABS Monocytes 0.7 10^3/ul (0-0.8); Eosinophil % 4.8 %; Lymphocyte % 17.9 %; Nucleated Red Blood Cells % 0.1
[2020-04-15] MEDS: DOXYcycline 100 mg CAP (*) PO SCH (08:19)
[2020-04-15] MEDS: Potassium Chlor 20 meq TAB.ER PO SCH (08:19)
[2020-04-15] MEDS: Insulin LISPRO 100 units/ml(*) SUBCUT SCH (08:29)
== END 2020-04-15 10:00 | disposition home health service (06) | DRG 280 ==
LOC: PMRU 04-10 11:17
PROVIDERS: ADMIT Physical Medicine & Rehabilitation; ATTEND Physical Medicine & Rehabilitation